=== PATIENT | female | born 1975 | race Caucasian/White ===

== ENCOUNTER 2020-09-28 12:29 | Observation (INO) | payer OTHER ==
[2020-09-28 13:08] LABS: Absolute Lymphocytes (CBC) 2.2 K/uL (0.7-4.9); Basophils % 1.1 % (0-1.3); Hematocrit 31.8 % (36.0-45.0); Lymphocytes % 26.1 % (15.3-44.8); MPV 8.7 fL (7.6-11.3); RBC Red Blood Cell Count 5.26 M/uL (3.86-4.86)
[2020-09-28 13:19] LABS: Protime INR 1.03
[2020-09-28 13:26] LABS: ALT/SGPT 28 U/L (12-78); AST/SGOT 23 U/L (15-37); Alkaline Phosphatase 87 U/L (45-117); BUN Blood Urea Nitrogen 10 mg/dL (7-18); Bicarbonate 26 mmol/L (21-32); Bilirubin Direct 0.1 mg/dL (0-0.2); Bilirubin Total 0.4 mg/dL (0.2-1.0); Glucose Level 88 mg/dL (74-106); Potassium 4.3 mmol/L (3.5-5.1); Protein, Total 7.9 g/dL (6.4-8.2); Sodium Level 137 mmol/L (136-145)
[2020-09-28 13:27] LABS: Magnesium 2.3 mg/dL (1.8-2.4); NT PRO-BNP 110 pg/mL (<125); Troponin (Emerg Dept Use Only) < 0.02 ng/mL (0.0-0.045)
--- NOTE | 2020-09-28 13:56 | RAD REPORT ---
EXAM DESCRIPTION: RAD - Chest Single View - 09/28/2020 1:44 pm CLINICAL HISTORY: CHEST PAIN COMPARISON: No comparisons FINDINGS: No evidence of edema or pneumonia. The heart size is within normal limits.No acute osseous abnormality. No significant pleural effusions or pneumothorax. IMPRESSION: No acute cardiopulmonary disease.
[2020-09-28 14:53] LABS: Anisocytosis 2+; Blood Morphology Comment NOTED (NOT SEEN); Platelet Estimate ADEQ; Poikilocytosis 2+; White Blood Cell Scan OK (OK)
[2020-09-28 15:38] LABS: Urine Blood Negative (Negative); Urine Glucose Negative (Negative); Urine Protein 1+ (Negative); Urine Specific Gravity >=1.030 (1.005-1.030)
--- NOTE | 2020-09-28 17:18 | EDPHYS ---
Physician Documentation [facility] Name: Allyson Soler Age: 45 yrs Sex: Female : 1975 Arrival Date: 09/28/2020 Time: 12:30 Bed 8 Private MD: ED Physician Jamil Perez HPI: 09/28 17:10 This 45 yrs old Female presents to ER via Ambulatory with complaints of Chest rivas Pain. 17:10 The patient or guardian reports chest pain that is located primarily in the substernal rivas area, anterior chest wall, bilaterally. Onset: 3 day(s) ago. The pain does not radiate. Associated signs and symptoms: Pertinent positives: dizziness, shortness of breath. The chest pain is described as causing indigestion, a pressure, squeezing. Duration: The patient or guardian reports multiple episodes, with no pattern. Modifying factors: The symptoms are alleviated by nothing. the symptoms are aggravated by nothing. Severity of pain: At its worst the pain was mild moderate in the emergency department the pain has improved moderately. The patient has experienced similar episodes in the past, several times. 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 - Social history:: Smoking status: Patient reports the use of cigarette tobacco products, smokes one pack cigarettes per day. - Family history:: not pertinent. ROS: 17:10 Constitutional: Negative for fever, chills, and weight loss, Eyes: Negative for injury, rivas pain, redness, and discharge, ENT: Negative for injury, pain, and discharge, Neck: Negative for injury, pain, and swelling, Abdomen/GI: Negative for abdominal pain, nausea, vomiting, diarrhea, and constipation, Back: Negative for injury and pain, : Negative for injury, bleeding, discharge, and swelling, MS/Extremity: Negative for injury and deformity, Skin: Negative for injury, rash, and discoloration, Neuro: Negative for headache, weakness, numbness, tingling, and seizure, Psych: Negative for depression, anxiety, suicide ideation, homicidal ideation, and hallucinations, Allergy/Immunology: Negative for hives, rash, and allergies, Endocrine: Negative for neck swelling, polydipsia, polyuria, polyphagia, and marked weight changes, Hematologic/Lymphatic: Negative for swollen nodes, abnormal bleeding, and unusual bruising. 17:10 Cardiovascular: Positive for chest pain. 17:10 Respiratory: Positive for shortness of breath. Exam: 17:10 Constitutional: This is a well developed, well nourished patient who is awake, alert, rivas and in no acute distress. Head/Face: Normocephalic, atraumatic. Eyes: Pupils equal round and reactive to light, extra-ocular motions intact. Lids and lashes normal. Conjunctiva and sclera are non-icteric and not injected. Cornea within normal limits. Periorbital areas with no swelling, redness, or edema. ENT: Nares patent. No nasal discharge, no septal abnormalities noted. Tympanic membranes are normal and external auditory canals are clear. Oropharynx with no redness, swelling, or masses, exudates, or evidence of obstruction, uvula midline. Mucous membranes moist. Neck: Trachea midline, no thyromegaly or masses palpated, and no cervical lymphadenopathy. Supple, full range of motion without nuchal rigidity, or vertebral point tenderness. No Meningismus. Chest/axilla: Normal chest wall appearance and motion. Nontender with no deformity. No lesions are appreciated. Cardiovascular: Regular rate and rhythm with a normal S1 and S2. No gallops, murmurs, or rubs. Normal PMI, no JVD. No pulse deficits. Respiratory: Lungs have equal breath sounds bilaterally, clear to auscultation and percussion. No rales, rhonchi or wheezes noted. No increased work of breathing, no retractions or nasal flaring. Abdomen/GI: Soft, non-tender, with normal bowel sounds. No distension or tympany. No guarding or rebound. No evidence of tenderness throughout. Back: No spinal tenderness. No costovertebral tenderness. Full range of motion. Female : Normal external genitalia. Skin: Warm, dry with normal turgor. Normal color with no rashes, no lesions, and no evidence of cellulitis. MS/ Extremity: Pulses equal, no cyanosis. Neurovascular intact. Full, normal range of motion. Neuro: Awake and alert, GCS 15, oriented to person, place, time, and situation. Cranial nerves II-XII grossly intact. Motor strength 5/5 in all extremities. Sensory grossly intact. Cerebellar exam normal. Normal gait. Psych: Awake, alert, with orientation to person, place and time. Behavior, mood, and affect are within normal limits. 17:10 Musculoskeletal/extremity: DVT Exam: No signs of deep vein thrombosis. no pain, no swelling, no tenderness, negative Homans' sign noted on exam, no appreciated bluish discoloration, no erythema, no increased warmth. 17:15 ECG was reviewed by the Attending Physician. [facility] Vital Signs: 12:38 BP 184 / 100 LA; jl7 12:38 BP 211 / 103 RA; Pulse 65; Resp 15; Temp 97.7; Pulse Ox 100% on R/A; Weight 65.77 kg; jl7 Height 5 ft. 4 in. (162.56 cm); Pain 5/10; 14:24 BP 208 / 99; Pulse 55; Resp 17; Temp 97.9(O); Pulse Ox 100% on R/A; mh5 16:19 BP 200 / 85; Pulse 75; Resp 16; Pulse Ox 98% on R/A; iw 19:36 BP 199 / 99; Pulse 55; Resp 16; Pulse Ox 97% on R/A; iw 12:38 Body Mass Index 24.89 (65.77 kg, 162.56 cm) jl7 MDM: 15:02 Patient medically screened. rivas 17:13 Differential diagnosis: abnormal EKG, acute myocardial infarction, acute pericarditis, rivas chest wall pain, cholecystitis, Cholelithiasis costochondritis, hiatal hernia, pancreatitis, peptic ulcer disease, pericarditis, pleurisy, stable angina, unstable angina. HEART Score: History: Slightly Suspicious (0), ECG: Normal (0), Age: > 45 and < 65 years (1), Risk Factors: > or = 3 Risk factors for atherosclerotic disease (2), [Hypercholesterolemia] [Hypertension] [Active Smoker] [+ Family HX]. The patient was given aspirin in the Emergency Department. The patient's deep vein thrombosis risk score was calculated as follows: Total Score: 0. This patient was found to be at low risk for a deep vein thrombosis by using the Well's assessment criteria. The patient's pulmonary embolism risk score was calculated as follows: Total Score: 0-2 points. This patient was found to be at low risk for a pulmonary embolism by using the Well's assessment criteria. SANDHYA Risk Score: 1 - Three or more CAD risk factors, TOTAL SCORE = 1. Data reviewed: vital signs, nurses notes, lab test result(s), EKG, radiologic studies, plain films. Data interpreted: library monitor: rate is 75 beats/min, rhythm is regular, Pulse oximetry: on room air is 98 %. Test interpretation: by ED physician or midlevel provider: ECG, plain radiologic studies. Counseling: I had a detailed discussion with the patient and/or guardian regarding: the historical points, exam findings, and any diagnostic results supporting the discharge/admit diagnosis, the presence of at least one elevated blood pressure reading (>120/80) during this emergency department visit, lab results, radiology results, the need for further work-up and treatment in the hospital. 09/28 12:43 Order name: Basic Metabolic Panel 09/28 12:43 Order name: CBC with Diff; Complete Time: 15:03 09/28 12:43 Order name: LFT's 09/28 12:43 Order name: Magnesium; Complete Time: 15:03 09/28 12:43 Order name: NT PRO-BNP; Complete Time: 15:03 09/28 12:43 Order name: PT-INR; Complete Time: 15:03 09/28 12:43 Order name: Troponin (emerg Dept Use Only); Complete Time: 15:03 09/28 12:44 Order name: Basic Metabolic Panel; Complete Time: 15:03 EDMS 09/28 12:44 Order name: Liver (Hepatic) Function; Complete Time: 15:03 EDNV 09/28 14:51 Order name: CBC Smear Scan; Complete Time: 15:03 EDNV 09/28 15:03 Order name: Lipase; Complete Time: 06:16 [facility] 09/28 15:37 Order name: Urine Dipstick-Ancillary; Complete Time: 16:55 EDMS 09/28 15:43 Order name: Urine --Ancillary (enter results) eb 09/28 15:44 Order name: Urine --Ancillary; Complete Time: 06:16 EDMS 09/28 12:43 Order name: XRAY Chest (1 view); Complete Time: 15:03 iw 09/28 17:53 Order name: COVID-19 : Document "Date of Symptom Onset" if Symptomatic. eb 09/28 17:54 Order name: CORONAVIRUS EDMS 09/28 20:24 Order name: SARS-COV-2 RT PCR; Complete Time: 06:16 EDMS 09/29 06:22 Order name: CBC with Automated Diff EDMS 09/29 06:47 Order name: Comprehensive Metabolic Panel EDMS 09/29 06:47 Order name: Troponin I EDMS 09/29 06:47 Order name: Lipid Profile EDMS 09/29 06:47 Order name: T4 Free EDMS 09/29 06:47 Order name: Magnesium EDMS 09/29 06:47 Order name: Thyroid Stimulating Hormone EDMS 09/29 06:47 Order name: Transferrin Sat/Iron Binding EDMS 09/29 06:47 Order name: Ferritin EDMS 09/29 13:01 Order name: Troponin I EDMS 09/28 12:43 Order name: EKG; Complete Time: 12:44 iw 09/28 12:43 Order name: Cardiac monitoring; Complete Time: 14:37 iw 09/28 12:43 Order name: EKG - Nurse/Tech; Complete Time: 14:28 iw 09/28 12:43 Order name: IV Saline Lock; Complete Time: 14:37 iw 09/28 12:43 Order name: Labs collected and sent; Complete Time: 14:28 iw 09/28 12:43 Order name: O2 Per Protocol; Complete Time: 14:28 iw 09/28 12:43 Order name: O2 Sat Monitoring; Complete Time: 14:28 iw 09/28 15:03 Order name: Urine Dipstick-Ancillary (obtain specimen); Complete Time: 15:37 rivas EC:15 Rate is 59 beats/min. Rhythm is regular. QRS [place] is Normal. TN interval is normal. QRS rivas interval is normal. QT interval is normal. No Q waves. T waves are Normal. No ST changes noted. Clinical impression: Sinus bradycardia and No evidence of ischemia. Interpreted by me. Reviewed by me. Administered Medications: 17:51 Drug: Aspirin Chewable Tablet 324 mg Route: PO; iw 19:38 Follow up: Response: No adverse reaction iw 17:51 Drug: Pepcid (famotidine) 20 mg Route: IVP; Site: right forearm; iw 19:38 Follow up: Response: No adverse reaction iw 17:51 Drug: Norvasc (amlodipine) 5 mg Route: PO; iw 19:38 Follow up: Response: No adverse reaction; Blood pressure is lowered iw 17:51 Drug: Enalaprilat 1.25 mg Route: IV; Rate: per protocol; Site: right forearm; iw 19:37 Follow up: IV Status: Completed infusion iw 17:52 Not Given (Patient Refused): morphine 2 mg IVP once; (PAIN>8) RASS on ADMN: Combtv4, iw Very Agttd3, Agttd2, Rstlss1, AlertClm0, Drwsy-1, LtSdtn-2, ModSdtn-3, DpSdtn-4, UnArsble-5 x2 17:52 Not Given (Patient Refused): Zofran (Ondansetron) 4 mg IVP once; over 2 minutes iw 17:54 Not Given (Physician Discretion): Vasotec (enalapril) 2.5 mg PO once iw 18:30 Drug: Lovenox (enoxaparin) 1 mg/kg Route: Sub-Q; Site: right lower abdomen; iw 19:37 Follow up: Response: No adverse reaction iw 19:43 Drug: Lisinopril 10 mg Route: PO; iw 20:09 Drug: NS 0.9% 1000 ml Route: IV; Rate: 125 ml/hr; Site: right forearm; zb Disposition Summary: 09/28/20 17:18 Hospitalization Ordered Hospitalization Status: Observation rivas Provider: Juanjose Diaz rivas Condition: Stable rivas Problem: new rivas Symptoms: have improved rivas Bed/Room Type: Standard rivas Location: [facility] ER HOLD(09/28/20 23:11) cg Room Assignment: ERHOLD-(09/28/20 23:11) cg Diagnosis - Chest pain, unspecified rivas - Angina pectoris, unspecified rivas - Anemia, unspecified rivas - Tobacco abuse counseling rivas - Tobacco use rivas - Essential (primary) hypertension rivas Forms: - Medication Reconciliation Form rivas - SBAR form rivas Signatures: Dispatcher [employer] Jamil Becerra MD MD cha Williams, Irene RN RN iw Sylvester Lea PA PA jr8 Garcia, Cindy, RN RN cg Gifty Justice RN RN jl7 Sarah White RN RN zb Corrections: (The following items were deleted from the chart) : Telemetry/MedSurg (observation) [facility]
--- NOTE | 2020-09-28 17:18 | ER ---
Nurse's Notes [facility] Name: Allyson Soler Age: 45 yrs Sex: Female : 1975 Arrival Date: 09/28/2020 Time: 12:30 Bed 8 Private MD: Diagnosis: Chest pain, unspecified;Angina pectoris, unspecified;Anemia, unspecified;Tobacco abuse counseling;Tobacco use;Essential (primary) hypertension Presentation: 09/28 12:38 Chief complaint: Patient states: Intermittent, non-radiating, midsternal CP x 4 days. jl7 Coronavirus screen: Client denies travel out of the [place] in the last 14 days. At this time, the client does not indicate any symptoms associated with coronavirus-19. Ebola Screen: No symptoms or risks identified at this time. Initial Sepsis Screen: Does the patient meet any 2 criteria? No. Patient's initial sepsis screen is negative. Does the patient have a suspected source of infection? No. Patient's initial sepsis screen is negative. Risk Assessment: Do you want to hurt yourself or someone else? Patient reports no desire to harm self or others. Onset of symptoms was September 24, 2020. 12:38 Method Of Arrival: Ambulatory jl7 12:38 Acuity: HUMBERTO 2 jl7 Triage Assessment: 12:40 General: Appears in no apparent distress. uncomfortable, Behavior is calm, cooperative, jl7 appropriate for age. Pain: Complains of pain in chest Pain does not radiate. Pain currently is 5 out of 10 on a pain scale. Quality of pain is described as pressure, Pain began x 4 days Is continuous. Cardiovascular: Patient's skin is warm and dry. 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 - Social history:: Smoking status: Patient reports the use of cigarette tobacco products, smokes one pack cigarettes per day. - Family history:: not pertinent. Screenin:29 Abuse screen: Denies threats or abuse. Denies injuries from another. Nutritional iw screening: No deficits noted. Tuberculosis screening: No symptoms or risk factors identified. Fall Risk None identified. Assessment: 14:29 General: Appears in no apparent distress. Behavior is calm, cooperative. Pain: iw Complains of pain in chest. Pain: Pain Is intermittent. Neuro: Level of Consciousness is awake, alert, obeys commands, Oriented to person, place, time, situation, Moves all extremities. Full function. 18:00 Reassessment: Patient appears in no apparent distress at this time. Patient and/or iw family updated on plan of care and expected duration. Pain level reassessed. Patient is alert, oriented x 3, equal unlabored respirations, skin warm/dry/pink. Vital Signs: 12:38 BP 184 / 100 LA; jl7 12:38 BP 211 / 103 RA; Pulse 65; Resp 15; Temp 97.7; Pulse Ox 100% on R/A; Weight 65.77 kg; 7 Height 5 ft. 4 in. (162.56 cm); Pain 5/10; 14:24 BP 208 / 99; Pulse 55; Resp 17; Temp 97.9(O); Pulse Ox 100% on R/A; [facility] 16:19 BP 200 / 85; Pulse 75; Resp 16; Pulse Ox 98% on R/A; iw 19:36 BP 199 / 99; Pulse 55; Resp 16; Pulse Ox 97% on R/A; iw 12:38 Body Mass Index 24.89 (65.77 kg, 162.56 cm) [facility] ED Course: 12:30 Patient arrived in ED. as 12:40 Triage completed. [facility] 12:40 Arm band placed on right wrist. [facility] 13:44 XRAY Chest (1 view) In Process Unspecified. EDMS 14:24 Patient has correct armband on for positive identification. Bed in low position. Call [facility] light in reach. Side rails up X 1. movement assembler on. Pulse ox on. NIBP on. 14:25 Initial lab(s) drawn, by pa, sent to lab. EKG done, by ED staff, reviewed by Jamil Perez MD. Inserted saline lock: 22 gauge in right forearm, using aseptic technique. Blood collected. 14:28 Rosenda Galindo, RN is Primary Nurse. 14:37 Basic Metabolic Panel Sent. [facility] 14:37 LFT's Sent. [facility] 15:02 Jamil Perez MD is Attending Physician. rivas 17:16 Juanjose Diaz DO is Hospitalizing Provider. [facility] 19:43 COVID-19 : Document "Date of Symptom Onset" if Symptomatic. Sent. iw Administered Medications: 17:51 Drug: Aspirin Chewable Tablet 324 mg Route: PO; iw 19:38 Follow up: Response: No adverse reaction iw 17:51 Drug: Pepcid (famotidine) 20 mg Route: IVP; Site: right forearm; iw 19:38 Follow up: Response: No adverse reaction iw 17:51 Drug: Norvasc (amlodipine) 5 mg Route: PO; iw 19:38 Follow up: Response: No adverse reaction; Blood pressure is lowered iw 17:51 Drug: Enalaprilat 1.25 mg Route: IV; Rate: per protocol; Site: right forearm; iw 19:37 Follow up: IV Status: Completed infusion iw 17:52 Not Given (Patient Refused): morphine 2 mg IVP once; (PAIN>8) RASS on ADMN: Combtv4, iw Very Agttd3, Agttd2, Rstlss1, AlertClm0, Drwsy-1, LtSdtn-2, ModSdtn-3, DpSdtn-4, UnArsble-5 x2 17:52 Not Given (Patient Refused): Zofran (Ondansetron) 4 mg IVP once; over 2 minutes iw 17:54 Not Given (Physician Discretion): Vasotec (enalapril) 2.5 mg PO once iw 18:30 Drug: Lovenox (enoxaparin) 1 mg/kg Route: Sub-Q; Site: right lower abdomen; iw 19:37 Follow up: Response: No adverse reaction iw 19:43 Drug: Lisinopril 10 mg Route: PO; iw 20:09 Drug: NS 0.9% 1000 ml Route: IV; Rate: 125 ml/hr; Site: right forearm; zb Outcome: 17:18 Decision to Hospitalize by Provider. [facility] 09/29 14:34 Patient left the ED. jd3 Signatures: Dispatcher [employer] EDMS Jamil Perez MD MD cha Martinez, Amelia as Williams, Irene, RN RN Louisa Avalos [facility] Gifty Justice, RN RN jl7 Santhosh Christy, RN RN jd3 Sarah White RN RN zb
[2020-09-28] MEDS ORDERED: ENALAPRILAT 1.25 MG/ML VIAL IV ONE (17:58)
[2020-09-28] MEDS ORDERED: FAMOTIDINE 20 MG/2 ML VIAL IV ONE (17:58)
[2020-09-28] MEDS ORDERED: ASPIRIN 81 MG CHEWABLE TABLET ONE (17:58)
[2020-09-28] MEDS ORDERED: AMLODIPINE 5 MG TAB ONE (17:58)
[2020-09-28] MEDS ORDERED: ENOXAPARIN 60 MG/0.6 ML SQ ONE (17:59)
--- NOTE | 2020-09-28 18:07 | P.HP ---
Certification for Inpatient Patient admitted to: Observation With expected LOS: <2 Midnights Patient will require the following post-hospital care: None Practitioner: I am a practitioner with admitting privileges, knowledge of patient current condition, hospital course, and medical plan of care. Services: Services provided to patient in accordance with Admission requirements found in Title 42 Section 412.3 of the Code of Federal Regulations <Calvin Abdi - Last Filed: 09/28/20 18:05> Patient admitted to: Observation <Juanjose Diaz - Last Filed: 09/29/20 07:21> Patient History Date of Service: 09/28/20 Primary Care Provider: None Reason for admission: Chest pain History of Present Illness: 45-year-old female with no significant past medical history presents emergency department for chest pain. Patient reports episodic chest pain over the course of the last 4 days described as pressure-like, nonradiating with associated hot flashes. Patient hypertensive with systolic in 200s in the emergency department labs were significant for microcytic anemia hemoglobin 9.5 hematocrit 31.8 MCV 60.4 initial troponin negative, EKG no acute changes, chest x-ray negative. ED provider wishes to admit for hypertension, chest pain, anemia. 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 moist/pink, EOMI, Sclerae nonicteric Neck: Supple, 2+ carotid pulse no bruit, No LAD, Without JVD or thyroid abnormality Respiratory: Clear to auscultation bilaterally, Normal air movement Cardiovascular: Regular rate/rhythm, Normal S1 S2 Gastrointestinal: Normal bowel sounds, No tenderness Musculoskeletal: No tenderness Integumentary: No rashes Neurological: Normal gait, Normal speech, Normal strength at 5/5 x4 extr, Normal tone, Normal affect Lymphatics: No axilla or inguinal lymphadenopathy - Studies Laboratory Data (last 24 hrs) 09/28/20 11:52: PT 11.9, INR 1.03 09/28/20 11:52: WBC 8.30, Hgb 9.5 L, Hct 31.8 L, Plt Count 279 09/28/20 11:52: Sodium 137, Potassium 4.3, BUN 10, Creatinine 0.88, Glucose 88, Magnesium 2.3, Total Bilirubin 0.4, AST 23, ALT 28, Alkaline Phosphatase 87 <Calvin Abdi - Last Filed: 09/28/20 18:05> - Studies Laboratory Data (last 24 hrs) 09/28/20 11:52: PT 11.9, INR 1.03 09/28/20 11:52: WBC 8.30, Hgb 9.5 L, Hct 31.8 L, Plt Count 279 09/28/20 11:52: Sodium 137, Potassium 4.3, BUN 10, Creatinine 0.88, Glucose 88, Magnesium 2.3, Total Bilirubin 0.4, AST 23, ALT 28, Alkaline Phosphatase 87 <Juanjose Diaz - Last Filed: 09/29/20 07:21> Assessment and Plan - Plan Assessment: Chest pain rule out ACS Hypertension Tobacco abuse Plan: Chest pain rule out ACS: Trend troponins, monitor on telemetry, cardiology consult in place. Continue aspirin, beta-melchor, statin therapy. Patient without previous cardiac work-up. Anticipate patient will be discharged the morning to follow-up with cardiology on outpatient basis. Hypertension: Initiate lisinopril, beta-melchor therapy with holding parameters for blood pressure/heart rate. Tobacco abuse: Discussed need for tobacco cessation, patient declined NicoDerm patch at this time. DVT PPX: Lovenox Code status: Full Discharge Plan: Home Plan to discharge in: 24 Hours - Advance Directives Does patient have a Living Will: No Does patient have a Durable POA for Healthcare: No - Code Status/Comfort Care Code Status Assessed: Yes (Full code) Time Spent Managing Pts Care (In Minutes): 55 <Calvin Abdi - Last Filed: 09/28/20 18:05>
[2020-09-28] MEDS ORDERED: ONDANSETRON 4 MG/2 ML VIAL IV PRN (19:41)
[2020-09-28] MEDS: METOPROLOL TAR 25 MG TAB PO SCH (19:41)
[2020-09-28] MEDS ORDERED: ACETAMINOPHEN 500 MG TAB PO PRN (19:41)
[2020-09-28] MEDS ORDERED: HYDRALAZINE HCL 20 MG/ML VIAL IV PRN (19:41)
[2020-09-28] MEDS ORDERED: MORPHINE 2 MG/ML SYR IV PRN (19:41)
[2020-09-28] MEDS ORDERED: lisinopriL 10 MG TAB ONE (20:02)
[2020-09-28] MEDS ORDERED: ATORVASTATIN 20 MG TAB ONE (20:11)
[2020-09-28] MEDS ORDERED: NA CHLORIDE 0.9% 1,000 ML ONE (20:28)
[2020-09-28] MEDS ORDERED: ATORVASTATIN 20 MG TAB PO SCH (21:00)
[2020-09-28 21:29] VITALS: BMI 24.8
[2020-09-29] MEDS: METOPROLOL TAR 25 MG TAB PO SCH (05:30)
[2020-09-29 06:20] LABS: Absolute Lymphocytes (CBC) 2.3 K/uL (0.7-4.9); Basophils % 1.6 % (0-1.3); Lymphocytes % 25.4 % (15.3-44.8); MPV 9.1 fL (7.6-11.3); RBC Red Blood Cell Count 4.99 M/uL (3.86-4.86)
[2020-09-29 06:47] LABS: ALT/SGPT 26 U/L (12-78); AST/SGOT 17 U/L (15-37); Albumin 3.4 g/dL (3.4-5.0); Alkaline Phosphatase 82 U/L (45-117); BUN Blood Urea Nitrogen 11 mg/dL (7-18); Bicarbonate 26 mmol/L (21-32); Bilirubin Total 0.2 mg/dL (0.2-1.0); Ferritin 5.1 ng/mL (8-388); Glucose Level 89 mg/dL (74-106); HDL Cholesterol 38 mg/dL (40-60); LDL Cholesterol, Calculated 135 (<130); Magnesium 2.2 mg/dL (1.8-2.4); Potassium 4.1 mmol/L (3.5-5.1); Protein, Total 7.1 g/dL (6.4-8.2); Sodium Level 137 mmol/L (136-145); Transferrin 321 mg/dL (200-360); Troponin I < 0.02 ng/mL (0.0-0.045)
[2020-09-29] MEDS ORDERED: PNEUMOCOCCAL VACCINE 0.5 ML IMVAC ONE (08:00)
[2020-09-29] MEDS ORDERED: ASPIRIN EC 81 MG TAB PO ONE (08:30)
[2020-09-29] MEDS ORDERED: ENOXAPARIN 40 MG/0.4 ML SQ ONE (08:31)
[2020-09-29] MEDS ORDERED: lisinopriL 20 MG TAB ONE (08:31)
[2020-09-29 08:39] VITALS: BP 178/95
[2020-09-29] MEDS ORDERED: HYDRALAZINE HCL 25 MG TABLET PO SCH (09:00)
[2020-09-29] MEDS ORDERED: lisinopriL 20 MG TAB PO SCH (09:00)
[2020-09-29] MEDS ORDERED: ASPIRIN EC 81 MG TAB PO SCH (09:00)
[2020-09-29] MEDS ORDERED: ENOXAPARIN 40 MG/0.4 ML SQ SCH (09:00)
[2020-09-29 09:28] VITALS: TEMP 97.6
[2020-09-29] MEDS ORDERED: SOD FERRIC GLUC COMPLX/SUCROSE 250 MG in NA CHLORIDE 0.9% 250 ML IV SCH (10:00)
[2020-09-29] MEDS ORDERED: HYDRALAZINE HCL 25 MG TABLET ONE (10:51)
--- NOTE | 2020-09-29 13:48 | CON ---
Date of Consultation: 09/29/2020 Reason For Consultation: Hypertension and chest pain. History Of Present Illness: The patient is a 45-year-old white woman. She came in with blood pressu re of 190/160, substernal chest pain, anemia, negative troponin and negative BNP, severe dyslipidemia . No nausea, vomiting, diaphoresis, PND, orthopnea, pedal edema, palpitations, or syncope. Allergies: NONE. Review of Systems: Negative. Social History: Positive for tobacco. Family History: Positive for heart disease. Past Medical History: Includes hypertension and dyslipidemia. Medications: Medications at home were none. Physical Examination: Vital Signs: Other than the blood pressure, her vital signs were stable, afebrile. HEENT: Negative. Neck: Supple with no bruit. Chest: Clear. Cardiac: Revealed a regular rhythm and rate. No murmurs, gallops, or rubs. Abdomen: Benign. Extremities: Revealed no clubbing, cyanosis, or edema. Diagnostic Data: As stated earlier. Impression And Plan: Chest pain secondary to severe hypertension. I think the patient should be on beta-blockers, hydralazine, Hyzaar, statin, aspirin, and she can go home today. I will see her in the office in the near future. NICHOLAS/DC Voice ID: [id number] Report ID: [id number]
[2020-09-29 15:08] VITALS: O2SAT 97
--- NOTE | 2020-10-06 06:44 | P.DS ---
Discharge Date: 09/29/20 Primary Care Provider: None Disposition: ROUTINE DISCHARGE Discharge Condition: GOOD Reason for Admission: Chest pain Consultations: Commission Clerk Brief History of Present Illness: 45-year-old female with no significant past medical history presents emergency department for chest pain. Patient reports episodic chest pain over the course of the last 4 days described as pressure-like, nonradiating with associated hot flashes. Patient hypertensive with systolic in 200s in the emergency department labs were significant for microcytic anemia hemoglobin 9.5 hematocrit 31.8 MCV 60.4 initial troponin negative, EKG no acute changes, chest x-ray negative. ED provider wishes to admit for hypertension, chest pain, anemia. Hospital Course: Patient is clinically doing well no new complaints. Patient clinical symptoms are improving. Patient will follow up with cardiology 1-2 weeks Vital Signs/Physical Exam: Temp Pulse Resp BP Pulse Ox 97.6 F 56 15 178/95 H 99 09/29/20 08:00 09/29/20 08:34 09/29/20 08:00 09/29/20 08:34 09/29/20 08:00 General: Alert, In no apparent distress, Oriented x3 Laboratory Data at Discharge: WBC 9.00 K/uL (4.3-10.9) 09/29/20 05:49 Hgb 9.2 g/dL (12.0-15.0) L 09/29/20 05:49 Hct 30.0 % (36.0-45.0) L 09/29/20 05:49 Plt Count 271 K/uL (152-406) 09/29/20 05:49 PT 11.9 SECONDS (9.5-12.5) 09/28/20 11:52 INR 1.03 09/28/20 11:52 Sodium 137 mmol/L (136-145) 09/29/20 05:49 Potassium 4.1 mmol/L (3.5-5.1) 09/29/20 05:49 BUN 11 mg/dL (7-18) 09/29/20 05:49 Creatinine 0.62 mg/dL (0.55-1.3) 09/29/20 05:49 Glucose 89 mg/dL (74-106) 09/29/20 05:49 Magnesium 2.2 mg/dL (1.8-2.4) 09/29/20 05:49 Total Bilirubin 0.2 mg/dL (0.2-1.0) 09/29/20 05:49 AST 17 U/L (15-37) 09/29/20 05:49 ALT 26 U/L (12-78) 09/29/20 05:49 Alkaline Phosphatase 82 U/L (45-117) 09/29/20 05:49 Troponin I < 0.02 ng/mL (0.0-0.045) 09/29/20 12:11 Triglycerides 193 mg/dL (<150) H 09/29/20 05:49 Cholesterol 212 mg/dL (<200) H 09/29/20 05:49 HDL Cholesterol 38 mg/dL (40-60) L 09/29/20 05:49 Cholesterol/HDL Ratio 5.58 09/29/20 05:49 Lipase 174 U/L (73-393) 09/28/20 18:55 Home Medications: Atorvastatin Calcium [Lipitor*] 40 mg PO BEDTIME #30 tab 09/29/20 Hydralazine [Apresoline*] 25 mg PO TID #90 tab 09/29/20 Losartan/Hydrochlorothiazide [Hyzaar 50-12.5 Tablet] 1 each PO DAILY #30 tablet 09/29/20 Metoprolol Tartrate [Lopressor*] 12.5 mg PO BID 6AM 6PM #60 tab 09/29/20 New Medications: Hydralazine [Apresoline*] 25 mg PO TID #90 tab Losartan/Hydrochlorothiazide [Hyzaar 50-12.5 Tablet] 1 each PO DAILY #30 tablet Atorvastatin Calcium [Lipitor*] 40 mg PO BEDTIME #30 tab Metoprolol Tartrate [Lopressor*] 12.5 mg PO BID 6AM 6PM #60 tab Physician Discharge Instructions: OK TO DC IV AND DC HOME FOLLOW-UP WITH PRIMARY CARE PROVIDER IN 1-2 WEEKS FOLLOW-UP WITH CARDIOLOGY IN 1-2 WEEKS RETURN TO THE ER IF symptoms worsen CALL or TEXT DR. INFANTE AT [phone] IF ANY QUESTIONS REGARDING HOSPITAL STAY. PLEASE CALL THE FLOOR AT [phone] IF ANY MEDICATION OR NURSING QUESTIONS. Diet: AHA Activity: Fall precautions Followup: NONE,NONE [Primary Care Provider] - Time spent managing pt's care (in minutes): 35
== END 2020-09-29 14:38 | disposition home or self-care (01) ==
LOC: ER 12:29 → ERHOLD 17:59
PROVIDERS: ADMIT Family Medicine; ATTEND Hospitalist
DX: I10 Essential (primary) hypertension (principal); R07.9 Chest pain, unspecified; D64.9 Anemia, unspecified; E78.5 Hyperlipidemia, unspecified; F17.210 Nicotine dependence, cigarettes, uncomplicated; Z71.6 Tobacco abuse counseling; Z85.828 Personal history of other malignant neoplasm of skin; Z20.822 Contact with and (suspected) exposure to COVID-19; Z82.49 Family history of ischemic heart disease and other diseases of the circulatory system
CPT/HCPCS: 96365; 93005; 85025 ×2; 80048; 36415; 83735 ×2; 81025; 85610; 80061; 80076; 84443; 81003; 84484 ×3; 84439; 82728; 83690; 83540; 80053; 83880; 84466; 71045; 96375; 96372; 99284; 96366; U0003; J1650 ×2; J2916; J7050; J7030; G0378 ×3

== ENCOUNTER 2021-05-25 10:14 | Emergency (ER) | payer OTHER ==
--- NOTE | 2021-05-25 11:04 | RAD REPORT ---
EXAM DESCRIPTION: RAD - Chest Single View - 05/25/2021 10:58 am CLINICAL HISTORY: syncope Chest pain. COMPARISON: Chest Single View dated 09/28/2020 FINDINGS: Portable technique limits examination quality. The lungs are grossly clear. The heart is normal in size. No displaced fractures. IMPRESSION: No acute intrathoracic process suspected.
[2021-05-25 11:47] LABS: Absolute Lymphocytes (CBC) 2.8 K/uL (0.7-4.9); Hematocrit 47.8 % (36.0-45.0); Lymphocytes % 26.7 % (15.3-44.8); RBC Red Blood Cell Count 5.99 M/uL (3.86-4.86)
--- NOTE | 2021-05-25 12:07 | RAD REPORT ---
EXAM DESCRIPTION: CT - Head Brain Wo Cont - 05/25/2021 11:40 am CLINICAL HISTORY: headache, dizziness COMPARISON: Head angio dated 05/25/2021 TECHNIQUE: All CT scans are performed using dose optimization technique as appropriate and may inclu de automated exposure control or mA/KV adjustment according to patient size. FINDINGS: No intracranial hemorrhage, hydrocephalus or extra-axial fluid collection.No areas of brai n edema or evidence of midline shift. The paranasal sinuses and mastoids are clear. The calvarium is intact. IMPRESSION: No acute intracranial abnormality.
--- NOTE | 2021-05-25 12:09 | RAD REPORT ---
EXAM DESCRIPTION: CT - Head angio - 05/25/2021 11:41 am CLINICAL HISTORY: HEADACHE COMPARISON: No comparisons TECHNIQUE: CT angiography of the head was performed with MIPs. All CT scans are performed using dose optimization technique as appropriate and may include automated exposure control or mA/KV adjustment according to patient size. FINDINGS: No evidence of aneurysm is detected. No flow-limiting stenosis or vascular malformation id entified. Antegrade flow is seen in the vertebral arteries. The vertebral arteries are codominant. The visualized dural venous sinuses are patent. IMPRESSION: No significant flow abnormality is detected.
--- NOTE | 2021-05-25 12:15 | RAD REPORT ---
EXAM DESCRIPTION: CT - Neck Angio - 05/25/2021 11:41 am CLINICAL HISTORY: dizziness Headache, drowsiness COMPARISON: No comparisons TECHNIQUE: CT angiography of the neck vessels was performed with MIPs. All CT scans are performed using dose optimization technique as appropriate and may include automated exposure control or mA/KV adjustment according to patient size. FINDINGS: A left aortic arch is identified with normal three vessel configuration of the great vesse ls. No significant flow abnormality is seen of the common carotid bilaterally. Mild narrowing is seen involving both carotid bulbs, both below 50% in luminal narrowing based on SYD CET criteria. Normal flow is seen within both vertebral arteries. IMPRESSION: Mild narrowing of both carotid bulbs is seen less than 50% based on NASCET criteria.
[2021-05-25 12:51] LABS: Magnesium 2.1 mg/dL (1.8-2.4); Potassium 3.9 mmol/L (3.5-5.1); Troponin High Sensitivity 6.7 pg/mL (<58.9)
[2021-05-25] MEDS ORDERED: HYDRALAZINE HCL 20 MG/ML VIAL ONE (13:02)
--- NOTE | 2021-05-25 13:58 | ER ---
Nurse's Notes [facility] Name: Allyson Soler Age: 45 yrs Sex: Female : 1975 Arrival Date: 05/25/2021 Time: 10:18 Bed 24 Private MD: Diagnosis: Hypertension Presentation: 05/25 11:00 Chief complaint: Patient states: Dizziness that began this morning at work, also ph reports headache, states, " My DR recently told me to double my BP meds when it is above 180. I didn't check it this morning because I was in a hurry so I just took the normal dose." BP in triage 193/97. Coronavirus screen: Vaccine status: Patient reports receiving the 2nd dose of the covid vaccine. Ebola Screen: No symptoms or risks identified at this time. Initial Sepsis Screen: Does the patient meet any 2 criteria? No. Patient's initial sepsis screen is negative. Does the patient have a suspected source of infection? No. Patient's initial sepsis screen is negative. Risk Assessment: Do you want to hurt yourself or someone else? Patient reports no desire to harm self or others. Onset of symptoms was May 25, 2021. 11:00 Method Of Arrival: Ambulatory ph 11:00 Acuity: HUMBERTO 2 ph Triage Assessment: 11:15 General: Appears in no apparent distress. comfortable, Behavior is calm, cooperative. ph Pain: Complains of pain in headahce. Neuro: Level of Consciousness is awake, alert, obeys commands, Oriented to person, place, time, situation, Reports dizziness, headache. Cardiovascular: Reports lightheadedness, Denies chest pain. Respiratory: Airway is patent Respiratory effort is even, unlabored. Musculoskeletal: Circulation, motion, and sensation intact. Range of motion: intact in all extremities. 12:12 Headache History: Denies prior headaches. Pain: Pain began gradually, Noted to be Also ab2 complains of nausea, inability to perform activities of daily living. Historical: - Allergies: 11:04 No Known Allergies; ph - PMHx: 11:04 Hypercholesterolemia; Hypertensive disorder; ph - Immunization history:: Adult Immunizations up to date. - Social history:: Smoking status: Patient reports the use of cigarette tobacco products, smokes one pack cigarettes per day. Screenin:12 Abuse screen: Denies threats or abuse. Denies injuries from another. Nutritional ab2 screening: No deficits noted. Tuberculosis screening: No symptoms or risk factors identified. Fall Risk None identified. Assessment: 12:10 General: Appears in no apparent distress. uncomfortable, Behavior is calm, cooperative, ab2 appropriate for age. Pain: Complains of pain in head Pain currently is 7 out of 10 on a pain scale. Neuro: Level of Consciousness is awake, alert, obeys commands, Oriented to person, place, time, situation, Appropriate for age Battery Hand are equal bilaterally Moves all extremities. Gait is steady, Speech is normal, Facial symmetry appears normal, Reports blurred vision dizziness, headache. Respiratory: Airway is patent Respiratory effort is even, unlabored, Respiratory pattern is regular, symmetrical, Breath sounds are clear bilaterally. GI: No deficits noted. No signs and/or symptoms were reported involving the gastrointestinal system. Abdomen is round non-distended. : No deficits noted. No signs and/or symptoms were reported regarding the genitourinary system. EENT: No deficits noted. No signs and/or symptoms were reported regarding the EENT system. Derm: Skin is intact, Skin is pink, warm \\T\\ dry. Musculoskeletal: No deficits noted. No signs and/or symptoms reported regarding the musculoskeletal system. 12:15 Cardiovascular: No deficits noted. Denies chest pain, shortness of breath, Heart tones ab2 S1 S2 Patient's skin is warm and dry. Rhythm is sinus bradycardia. Vital Signs: 11:00 BP 193 / 97; Pulse 46; Resp 18; Temp 98.1; Pulse Ox 100% on R/A; Weight 56.7 kg; Height ph 5 ft. 4 in. (162.56 cm); 12:13 BP 194 / 103; Pulse 42; Resp 16; Pulse Ox 100% on R/A; ab2 13:01 BP 198 / 86; Pulse 46; Resp 16; Pulse Ox 99% on R/A; ab2 14:26 BP 167 / 79; Pulse 47; Resp 17; Pulse Ox 98% on R/A; ab2 11:00 Body Mass Index 21.46 (56.70 kg, 162.56 cm) ph ED Course: 10:18 Patient arrived in ED. mr 10:42 Manny Joyner PA is PHCP. jmm 10:42 Sam Pina MD is Attending Physician. [facility] [place] [facility] 11:00 XRAY Chest (1 view) In Process Unspecified. EDMS 11:03 Triage completed. ph 11:03 Arm band placed on. ph 11:09 Rosenda Galindo, RN is Primary Nurse. iw 11:42 CT Head Brain wo Cont In Process Unspecified. EDMS 11:43 CT Head Angio In Process Unspecified. EDMS 11:43 CT Neck Angio In Process Unspecified. EDMS 12:10 Basic Metabolic Panel Sent. ab2 12:10 Magnesium Sent. ab2 12:10 NT PRO-BNP Sent. ab2 12:10 Troponin HS Sent. ab2 12:12 Patient has correct armband on for positive identification. Bed in low position. Call ab2 light in reach. Side rails up X2. Adult w/ patient. 12:12 No provider procedures requiring assistance completed. Inserted saline lock: 22 gauge ab2 in left wrist, using aseptic technique. 13:57 Jac Rodriguez MD is Referral Physician. [facility] 14:26 IV discontinued, intact, bleeding controlled, No redness/swelling at site. Pressure ab2 dressing applied. Administered Medications: 13:01 Drug: hydrALAZINE 10 mg Route: IVP; Site: left wrist; ab2 14:00 Follow up: Response: No adverse reaction; Pain is decreased iw Outcome: 13:57 Discharge ordered by MD. [facility] 14:26 Discharged to home ambulatory, with family. ab2 14:26 Condition: good 14:26 Discharge instructions given to patient, Instructed on discharge instructions, follow up and referral plans. Demonstrated understanding of instructions, follow-up care. 14:26 Patient left the ED. ab2 Signatures: Dispatcher [employer] EDPA Manny Joyner PA PA Afsaneh Norman mr Rosenda Galindo, RN RN iw Crystal Dooley RN RN ph Aamir Clay ab2 Corrections: (The following items were deleted from the chart) 12:15 12:10 Cardiovascular: Denies chest pain, shortness of breath, Heart tones S1 S2 present ab2 Patient's skin is warm and dry. Rhythm is sinus rhythm ab2
--- NOTE | 2021-05-25 13:58 | EDPHYS ---
Physician Documentation [facility] Name: Allyson Soler Age: 45 yrs Sex: Female : 1975 Arrival Date: 05/25/2021 Time: 10:18 Bed 24 Private MD: ED Physician Sam Pina HPI: 05/25 10:42 This 45 yrs old Female presents to ER via Unassigned with complaints of Dizziness, jmm Vision Problem, Headache. 10:42 The patient has experienced near-syncope. Onset: The symptoms/episode began/occurred jmm today. Associated injury: The patient did not suffer any apparent associated injury. Is a 45-year-old female with history of hypertension the presents emerged department with complaints of near syncope/dizziness beginning earlier today. Patient recently had her medication changed by her bilingual trainer whom advised her to double up her all her medications. Patient states that she took single dose of her medications this morning. Patient states that her vision is collapsing when she stands up. Denies chest pain or shortness of breath.. Historical: - Allergies: 11:04 No Known Allergies; ph - PMHx: 11:04 Hypercholesterolemia; Hypertensive disorder; ph - Immunization history:: Adult Immunizations up to date. - Social history:: Smoking status: Patient reports the use of cigarette tobacco products, smokes one pack cigarettes per day. ROS: 10:42 Constitutional: Negative for fever, chills, and weight loss, Cardiovascular: Negative jmm for chest pain, palpitations, and edema, Respiratory: Negative for shortness of breath, cough, wheezing, and pleuritic chest pain. 10:42 Neuro: Positive for dizziness, near syncope. 10:42 All other systems are negative. Exam: 10:42 Constitutional: This is a well developed, well nourished patient who is awake, alert, jmm and in no acute distress. Head/Face: atraumatic. Eyes: EOMI, no conjunctival erythema appreciated ENT: Moist Mucus Membranes Neck: Trachea midline, Supple Chest/axilla: Normal chest wall appearance and motion. Cardiovascular: Regular rate and rhythm. No edema appreciated Respiratory: Normal respirations, no respiratory distress appreciated Abdomen/GI: Non distended, soft Back: Normal ROM Skin: General appearance color normal MS/ Extremity: Moves all extremities, no obvious deformities appreciated, no edema noted to the lower extremities Neuro: Awake and alert Psych: Behavior is normal, Mood is normal, Patient is cooperative and pleasant Vital Signs: 11:00 BP 193 / 97; Pulse 46; Resp 18; Temp 98.1; Pulse Ox 100% on R/A; Weight 56.7 kg; Height ph 5 ft. 4 in. (162.56 cm); 12:13 BP 194 / 103; Pulse 42; Resp 16; Pulse Ox 100% on R/A; ab2 13:01 BP 198 / 86; Pulse 46; Resp 16; Pulse Ox 99% on R/A; ab2 14:26 BP 167 / 79; Pulse 47; Resp 17; Pulse Ox 98% on R/A; ab2 11:00 Body Mass Index 21.46 (56.70 kg, 162.56 cm) ph MDM: 10:42 Patient medically screened. [facility] 13:56 Data reviewed: vital signs, nurses notes. Counseling: I had a detailed discussion with vero the patient and/or guardian regarding: the historical points, exam findings, and any diagnostic results supporting the discharge/admit diagnosis, lab results, radiology results, the need for outpatient follow up, to return to the emergency department if symptoms worsen or persist or if there are any questions or concerns that arise at home. ED course: Patient states she feels much better. Blood pressure is lower. Patient states that she did not take the double dose due to not having access to blood pressure cuff. Patient was advised to take double the dose if her blood pressure was over 180 systolic. I did discuss the patient's case with whom stated that he will follow with the patient in clinic.. 05/25 10:44 Order name: Basic Metabolic Panel; Complete Time: 12:53 [facility] 05/25 10:44 Order name: CBC with Diff; Complete Time: 11:53 [facility] 05/25 10:44 Order name: Magnesium; Complete Time: 12:53 [facility] 05/25 10:44 Order name: NT PRO-BNP; Complete Time: 12:53 [facility] 05/25 10:44 Order name: Troponin HS; Complete Time: 12:53 [facility] 05/25 12:15 Order name: CREATININE WHOLE BLOOD; Complete Time: 12:20 [facility] 05/25 10:44 Order name: XRAY Chest (1 view); Complete Time: 11:06 [facility] 05/25 10:44 Order name: EKG; Complete Time: 10:45 [facility] 05/25 10:44 Order name: Cardiac monitoring; Complete Time: 12:10 [facility] 05/25 10:44 Order name: EKG - Nurse/Tech; Complete Time: 12:10 [facility] 05/25 11:07 Order name: CT Head Brain wo Cont; Complete Time: 12:12 [facility] 05/25 11:07 Order name: CT Head Angio; Complete Time: 12:12 [facility] 05/25 11:08 Order name: CT Neck Angio; Complete Time: 12:20 [facility] 05/25 10:44 Order name: IV Saline Lock; Complete Time: 12:10 [facility] 05/25 10:44 Order name: Labs collected and sent; Complete Time: 12:10 [facility] 05/25 10:44 Order name: O2 Per Protocol; Complete Time: 12:10 [facility] 05/25 10:44 Order name: O2 Sat Monitoring; Complete Time: 12:10 [facility] 05/25 12:06 Order name: Labs - recollect needed: recollect c7; Complete Time: 12:10 bd Administered Medications: 13:01 Drug: hydrALAZINE 10 mg Route: IVP; Site: left wrist; ab2 14:00 Follow up: Response: No adverse reaction; Pain is decreased iw Disposition: 16:54 Co-signature as Attending Physician, Sam Pina MD. rn Disposition Summary: 05/25/21 13:57 Discharge Ordered Location: Home [facility] Condition: Stable [facility] Diagnosis - Hypertension [facility] Followup: [facility] - With: Jac Rodriguez MD - When: 1 - 2 days - Reason: Recheck today's complaints, Continuance of care, Re-evaluation by your physician Discharge Instructions: - Discharge Summary Sheet [facility] - Hypertension, Adult [facility] Forms: - Medication Reconciliation Form [facility] - Thank You Letter [facility] - Antibiotic Education [facility] - Work release form [facility] - Prescription Opioid Use [facility] Signatures: Dispatcher [employer] Sheyla Michael Joel, PA PA jmm Nieto, Roman, MD MD rn Hall, Patricia, RN RN Aamir Guillaume ab2 Rosenda Galindo RN iw
[2021-05-25 14:35] VITALS: TEMP 98.1
[2021-05-25 15:02] VITALS: BP 198/86; O2SAT 99
--- NOTE | 2021-05-26 08:32 | EKG ---
Test Date: 2021-05-25 Test Time: 11:21:56 Finance Mgr: YULI MEASUREMENT RESULTS: Intervals: Rate: 41 KS: 160 QRSD: 80 QT: 486 QTc: 400 [place]: P: 83 KS: 160 QRS: 80 T: 78 INTERPRETIVE STATEMENTS: Marked sinus bradycardia Moderate voltage criteria for LVH, may be normal variant Abnormal ECG Compared to ECG 09/28/2020 12:37:11 Left ventricular hypertrophy now present Electronically Signed On 05-26-21 08:28:16 CDT by Jac Rodriguez
== END 2021-05-25 14:26 | disposition home or self-care (01) ==
LOC: ER 10:14
DX: I10 Essential (primary) hypertension (principal); F17.210 Nicotine dependence, cigarettes, uncomplicated
CPT/HCPCS: 93005; 85025; 80048; 36415; 83735; 82565; 84484; 83880; 70450; 70496; 70498; 71045; 96374; 99284; Q9967; J0360

== ENCOUNTER 2024-01-12 14:55 | Inpatient (IN) | payer BC ==
--- OUTSIDE RECORDS SUMMARY | 2024-01-12 14:58 | XMS REPORT | Continuity of Care Document ---
Author Name Unknown Address [address] [facility] [address] [place] [address] [facility] thconnect Address [address] [facility] [address] [place] [address] Care Team Providers Care Show Card Letterer Name Role Phone NICO GORMAN Attending Clinician Unavailable CORNELIA_KATIUSKAZW_Kadinicolea_S Attending Clinician UnavailSariah Edwards Attending Clinician UnavailLISA Edwards Attending Clinician Unavail able CRYSTAL Attending Clinician Unavailable CORNELIA_GCBZW_Kadinicolea_S Admitting Clinician UnavailChevy Salazar V Admitting Clinician Unavailable CRYSTAL Admitting Clinician Unavailable Payers Payer Name Policy Type Policy Number Effective Date Expirati on Date Source Problems Condition Name Condition Details Condition Category Status Onset Date Resolution Date Last Treatment Date Treating Clinician Comments Source Essential hypertensi on Essential Hypertensi on Problem Active 08-08 00:00: 00 [facility] Hypertensi ve disorder Hypertensi ve Disorder Problem Active 08-08 00:00: 00 [facility] Nausea Nausea Problem Active 08-08 00:00: 00 [facility] Allergies, Adverse Reactions, Alerts Allergy Name Allergy Type Status Severity Reaction(s) Onset Date Inactive Date Treating Clinician Comments Source No Known Allergie s DA Active U 03-09 00:00: 00 [facility] Social History Smoking Status Start Date Stop Date Source Light Tobacco Smoker [facility] Medications Ordered Medication Name Filled Medication Name Start Date Stop Date Current Medication? Ordering Clinician Indication Dosage Frequency Signature (SIG) Comments Components Source hydrochloro thiazide 25 mg tablet Take 1 tablet every day by oral route in the morning, for blood pressure. hydrochloro thiazide 25 mg tablet Take 1 tablet every day by oral route in the morning, for blood pressure. No 1 Q1D hydrochlor othiazide 25 mg tablet Take 1 tablet every day by oral route in the morning, for blood pressure. [facility] losartan 25 mg tablet Take 1 tablet every day by oral route in the evening, for blood pressure. losartan 25 mg tablet Take 1 tablet every day by oral route in the evening, for blood pressure. No 1 Q1D losartan 25 mg tablet Take 1 tablet every day by oral route in the evening, for blood pressure. [facility] ondansetron 8 [address] ing tablet Place 1 tablet twice a day by translingua l route as needed, for nausea/vomi ting. ondansetron [address] tablet [address] 1 tablet twice a day by translingua l route as needed, for nausea/vomi ting. No 1 BID ondansetro n 8 mg disinte[address] ting tablet Place 1 tablet twice a day by translingu al route as needed, for nausea/vom iting. [facility] Vital Signs Vital Name Observation Time Observation Value Comments S ource BP Diastolic 2023-08-24 00:00:00 116 mm[Hg] Mahendra agorda [facility] BP Systolic 2023-08-24 00:00:00 197 mm[Hg] Arjun andreas [facility] Height 2023-08-24 00:00:00 64 [in_i] Conrado orda [facility] Body Weight 2023-08-24 00:00:00 3 [oz_av] Pelon britt [facility] BMI (Body Mass Index) 2023-08-24 00:00:00 22 kg/m2 [facility] Body Weight 2023-08-09 00:00:00 2038 [oz_av] Pelon seymourorda [facility] BP Diastolic 2023-08-09 00:00:00 121 mm[Hg] Mahendra smitha [facility] Height 2023-08-09 00:00:00 64 [in_i] Conrado koch [facility] BP Systolic 2023-08-09 00:00:00 231 mm[Hg] Arjun gibsba [facility] BMI (Body Mass Index) 2023-08-09 00:00:00 21.9 kg/m2 [facility] Encounters Start Date/Time End Date/Time Encounter Type Admission Type Attending Clinicians Care Facility Care Department Encounter ID Source 2023-08-24 00:00:00 2023-08-24 00:00:00 Melissa Chávez, ISOTOPE TECHNICIAN: [place] [address] , Ph. [facility] [id number] [facility] 2023-08-09 00:00:00 2023-08-09 00:00:00 Melissa Chávez, ISOTOPE TECHNICIAN: [address] [place] [address] , Ph. [facility] [id number] [facility] 2023-07-14 12:36:00 2023-07-14 14:27:00 Emergency ER NICO GORMAN [id number] 2022-12-19 00:00:00 2022-12-19 00:00:00 Outpatient GC_[email or web address] dibrooklynn_S [facility] [id number] [facility] 2022-03-11 11:50:00 2022-03-11 11:50:00 Outpatient Sariah Foster [facility] [id number] 36 [facility] 2022-02-16 17:23:00 2022-02-16 17:23:00 Outpatient LUCIA LISA CHAVEZ [facility] [id number] [facility] 2021-09-17 00:00:00 2021-09-17 00:00:00 Outpatient [facility]ACQUE [facility] [id number] [facility] Results Test Description Test Time Test Comments Results Result Co mments Source UR HCG [id number] 11:08:00* Test Item Value Reference Range Interpretation Comme nts UR HCG QUAL (test code = HCGQLU) NEGATIVE NEGATIVE Notes Date/Time Note Provider Source 2022-03-11 17:47:00 [facility] ([facility] Brief Op Note REPORT#:[id number] REPORT STATUS: Signed DATE:03/11/22 TIME:174 PATIENT: FAWN JONES UNIT #: [id number] ROOM/BED: : 73 AGE: 46 SEX: F ATTEND: Sariah Chavez MD ADM AUTHOR: Sariah Chavez MD * ALL edits or amendments must be made on the electronic/computer document * Op/Inv Proc Note - Brief Pre-procedure diagnosis: postmenopausal bleeding, + HCG blood test Post-procedure diagnosis: same as pre procedure dx, endometriosis Procedures performed: RTLH BS endometriosis fulgration excision, SHAHRZAD small and large bowel Primary Surgeon: miguel Research Program Manager(s): maxim smith Anesthesia: general anesthesia Findings: small bowel adhesions to RLQ, sigmoid to left wall, endometriosis post vaginal wall, bilateral lateral hercules Complications: none Estimated blood loss in ml's: 25 Specimens removed/altered: uterus and tubes Drain(s): None Fluids: 1200 lr Urine output: 100 Approach: laparoscopic, robotic Wound class: clean-contaminated Disposition: plan to D/C home Counts: Sponge count: correct Instrument count: correct Needle count: correct at 1755 RPT #: [id number] END OF REPORT [facility]
[2024-01-12] MEDS ORDERED: FAMOTIDINE 20 MG/2 ML VIAL IV ONE (15:35)
[2024-01-12] MEDS ORDERED: LEVALBUTEROL 1.25 MG/3 ML NEB ONE ×2 (15:35→17:48)
[2024-01-12] MEDS ORDERED: METHYLPREDNISOLONE 125 MG INJ ONE (15:35)
[2024-01-12] MEDS ORDERED: IPRATROPIUM BROM 0.5MG/2.5ML ONE (15:35)
[2024-01-12] MEDS ORDERED: Levofloxacin500mg IV 500 MG/100 ML BAG IV ONE (15:36)
[2024-01-12] MEDS ORDERED: Magnesium Sulfate 2gm IVPB 2 G/50 ML BAG IV ONE (15:36)
--- NOTE | 2024-01-12 16:03 | RAD REPORT ---
EXAMINATION: ONE VIEW CHEST XR CLINICAL INDICATION: COPD;Cough TECHNIQUE: Frontal chest projection is submitted. Examination is limited by patient positioning and t echnique. COMPARISON: 05/29/2022 FINDINGS: The lungs are diffusely emphysematous but grossly clear. The heart is normal in size. No displaced fr actures identified. IMPRESSION: COPD without an acute process suspected.
--- NOTE | 2024-01-12 16:20 | ER ---
Nurse's Notes [facility] Name: Allyson Soler Age: 48 yrs Sex: Female : 1975 Arrival Date: 01/12/2024 Time: 14:55 Bed 18 Private MD: Diagnosis: Dyspnea;Hypoxemia;COPD/ Chronic obstructive pulmonary disease with (acute) exacerbation;Tobacco abuse counseling;Tobacco use Presentation: 01/11 15:02 Chief complaint: Patient states: SOB since Tuesday, haven't eaten. No n/v/d. Cough, body tm6 aches. Coronavirus screen: Client denies travel out of the [place] in the last 14 days. Ebola Screen: Patient negative for fever greater than or equal to 101.5 degrees Fahrenheit, and additional compatible Ebola Virus Disease symptoms Patient denies exposure to infectious person. Patient denies travel to an Ebola-affected area in the 21 days before illness onset. No symptoms or risks identified at this time. Initial Sepsis Screen: Does the patient meet any 2 criteria? RR > 20 per min. No. Patient's initial sepsis screen is negative. Does the patient have a suspected source of infection? No. Patient's initial sepsis screen is negative. Risk Assessment: Do you want to hurt yourself or someone else? Patient reports no desire to harm self or others. Onset of symptoms was January 06, 2024. 15:02 Method Of Arrival: Ambulatory tm6 15:02 Acuity: HUMBERTO 3 tm6 Triage Assessment: 15:03 General: Appears distressed, Behavior is cooperative. Pain: Complains of pain in body tm6 aches. EENT: No signs and/or symptoms were reported regarding the EENT system. Neuro: Level of Consciousness is awake, alert, obeys commands, Oriented to person, place, time, situation. Cardiovascular: Patient's skin is warm and dry. Respiratory: Reports shortness of breath cough that is labored breathing since Tuesday Airway is patent Respiratory effort is labored, Respiratory pattern is symmetrical, Onset: The symptoms/episode began/occurred Last Tuesday, the patient has moderate shortness of breath. GI: No signs and/or symptoms were reported involving the gastrointestinal system. Abdomen is flat, non-distended. : No signs and/or symptoms were reported regarding the genitourinary system. Derm: No signs and/or symptoms reported regarding the dermatologic system. Musculoskeletal: Reports body aches. 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 - Infectious Disease History:: Denies. - Social history:: Smoking status: Patient reports the use of cigarette tobacco products, smokes one pack cigarettes per day. Patient uses alcohol, occasionally. Screenin:00 [facility] ED Fall Risk Assessment (Adult) History of falling in the last 3 months, kj2 including since admission No falls in past 3 months (0 pts) Confusion or Disorientation No (0 pts) Intoxicated or Sedated No (0 pts) Impaired Gait No (0 pts) Mobility Assist Device Used No (0 pt) Altered Elimination No (0 pt) Score/Fall Risk Level 0 - 2 = Low Risk Maintained a safe environment, Hourly rounding (assess needs \T\ fall precautionary measures) done. Abuse screen: Denies threats or abuse. Denies injuries from another. Nutritional screening: No deficits noted. Tuberculosis screening: No symptoms or risk factors identified. Assessment: 19:00 Respiratory: Airway is patent Respiratory effort is unlabored, Breath sounds with kj2 rhonchi bilaterally. 19:09 Reassessment: Patient and/or family updated on plan of care and expected duration. Pain kj2 level reassessed. Patient is alert, oriented x 3, equal unlabored respirations, skin warm/dry/pink. 20:00 Reassessment: Patient appears in no apparent distress at this time. Patient and/or kj2 family updated on plan of care and expected duration. Pain level reassessed. Patient is alert, oriented x 3, equal unlabored respirations, skin warm/dry/pink. 21:00 Reassessment: No changes from previously documented assessment. Patient and/or family kj2 updated on plan of care and expected duration. Pain level reassessed. Patient is alert, oriented x 3, equal unlabored respirations, skin warm/dry/pink. 22:35 Reassessment: No changes from previously documented assessment. Patient and/or family kj2 updated on plan of care and expected duration. Pain level reassessed. Patient is alert, oriented x 3, equal unlabored respirations, skin warm/dry/pink. 23:06 Reassessment: called to report fax, no answer to [phone] or listed phone # for nurse. kj2 23:08 Cardiovascular: Rhythm is regular. kj2 23:13 Reassessment: report of fax given to Elyssa on 2nd floor. kj2 23:14 Reassessment: Patient appears in no apparent distress at this time. Patient and/or kj2 family updated on plan of care and expected duration. Pain level reassessed. Patient is alert, oriented x 3, equal unlabored respirations, skin warm/dry/pink. Vital Signs: 15:01 Pulse 77; Resp 25; Temp 97.6(O); Pulse Ox 93% on R/A; Weight 58.97 kg; Height 5 ft. 4 tm6 in. ; 15:02 BP 223 / 118; MAP 146 mmHg; tm6 15:02 Pain 8/10; tm6 15:09 Pulse Ox 89% on R/A; tm6 15:09 Pulse Ox 95% on 2 lpm NC; tm6 15:22 BP 197 / 104; Pulse 55; Resp 18; Pulse Ox 97% ; bp 16:13 BP 165 / 96; Pulse 65; Resp 21; Pulse Ox 94% ; bp 19:11 BP 164 / 82; Pulse 64; Resp 19; Pulse Ox 93% on R/A; kj2 20:00 BP 165 / 90; Pulse 60; Resp 18; Temp 97.9; Pulse Ox 93% ; kj2 22:35 BP 167 / 88; Pulse 66; Resp 18; Temp 98; Pulse Ox 96% on R/A; kj2 15:01 Body Mass Index 22.31 (58.97 kg, 162.56 cm) tm6 15:02 Pain Scale: Adult tm6 ED Course: 14:57 Patient arrived in ED. im 15:02 Jamil Perez MD is Attending Physician. rivas 15:03 Triage completed. tm6 15:03 Arm band placed on right wrist. tm6 15:09 Allergy band placed. tm6 15:12 Garrison Fischer, BRIAN is Primary Nurse. bp 15:45 Initial lab(s) drawn, by tx, sent to lab. First set of blood cultures drawn by me, bp Second set of blood cultures drawn by me, COVID swab sent to lab. Flu and/or RSV swab sent to lab. 15:45 Inserted saline lock: 20 gauge in right forearm, using aseptic technique. Blood bp collected. 15:52 XRAY Chest (1 view) In Process Unspecified. EDMS 16:19 Elizabeth Gongora is Hospitalizing Provider. [facility] 19:00 Report received from BRIAN TORRES. kj2 19:00 Provided Education on: call light. kj2 22:36 No provider procedures requiring assistance completed. Patient admitted, IV remains in kj2 place. Administered Medications: 15:45 Drug: MethylPrednisoLONE IVP 125 mg IVP once Route: IVP; Site: right forearm; bp 16:38 Follow up: Response: No adverse reaction bp 15:45 Drug: Levalbuterol Inhalation 3.75 mg Inhalation once Route: Inhalation; bp 15:45 Drug: NS 0.9% IV 500 ml 500 ml IV at 1 bolus once; to be given as a bolus over 30 bp minutes Volume: 500 ml; Route: IV; Rate: 1 bolus; Site: right forearm; 16:38 Follow up: IV Status: Completed infusion bp 15:45 Drug: NS 0.9% IV 1000 ml IV at 125 ml/hr continuous Route: IV; Rate: 125 ml/hr; Site: bp right forearm; 16:38 Follow up: IV Status: Infusion continued upon admission bp 15:45 Drug: Ipratropium Inhalation Aerosol 0.5 mg Inhalation once Route: Inhalation; bp 15:45 Drug: levofloxacin IVPB 500 mg 100 ml IVPB once over 60 mins Volume: 100 ml; Route: bp IVPB; Infused Over: 60 mins; Site: right forearm; 16:38 Follow up: IV Status: Completed infusion bp 15:45 Drug: Famotidine IVP 20 mg IVP once; dilute with 10 mL 0.9% NaCl; give over 2 minutes bp Route: IVP; Site: right forearm; 16:38 Follow up: Response: No adverse reaction bp 15:45 Drug: Magnesium Sulfate IVPB 2 grams IVPB once over 1 hrs Route: IVPB; Infused Over: 1 bp hrs; Site: right forearm; 16:39 Follow up: IV Status: Completed infusion bp 16:38 Drug: Levalbuterol Inhalation 2.5 mg Inhalation once Route: Inhalation; bp Medication: 19:00 VIS not applicable for this client. kj2 Outcome: 16:20 Decision to Hospitalize by Provider. rivas 23:10 Admitted to Med/surg accompanied by tech, room 215, kj2 23:10 Condition: stable 23:10 Instructed on the need for admit, 23:24 Patient left the ED. kj2 Signatures: Dispatcher [employer] Jamil Becerra MD MD cha Peltier, Brian, RN RN bp Anali Ford Tawney RN RN tm6 Geraldine Campuzano, RN RN kj2
--- NOTE | 2024-01-12 16:20 | EDPHYS ---
Physician Documentation [facility] Name: Allyson Soler Age: 48 yrs Sex: Female : 1975 Arrival Date: 01/12/2024 Time: 14:55 Bed 18 Private MD: ED Physician Jamil Perez HPI: 01/11 15:19 This 48 yrs old Female presents to ER via Ambulatory with complaints of rivas Shortness Of Breath, Cough. 15:19 The patient has shortness of breath at rest, with light activity. Onset: The rivas symptoms/episode began/occurred 3 day(s) ago. Duration: The symptoms are continuous, and are steadily getting worse. The patient's shortness of breath is aggravated by coughing. Associated signs and symptoms: Pertinent positives: non-productive cough. Severity of symptoms: At their worst the symptoms were moderate in the emergency department the symptoms are unchanged. The patient has experienced similar episodes in the past, several times. COLORMAN: 23:09 LMP N/A - Hysterectomy, Not kj2 Historical: - Allergies: 15:03 Latex; tm6 - PMHx: 15:03 Hypercholesterolemia; Hypertensive disorder; tm6 - PSHx: 15:03 hysterectomy; melanoma removed (hysterectomy); tm6 - Immunization history:: Client reports receiving the 2nd dose of the Covid vaccine. - Infectious Disease History:: Denies. - Social history:: Smoking status: Patient reports the use of cigarette tobacco products, smokes one pack cigarettes per day. Patient uses alcohol, occasionally. ROS: 15:20 Constitutional: Negative for fever, chills, and weight loss, Eyes: Negative for injury, rivas pain, redness, and discharge, ENT: Negative for injury, pain, and discharge, Neck: Negative for injury, pain, and swelling, Cardiovascular: Negative for chest pain, palpitations, and edema, Abdomen/GI: Negative for abdominal pain, nausea, vomiting, diarrhea, and constipation, Back: Negative for injury and pain, : Negative for injury, bleeding, discharge, and swelling, MS/Extremity: Negative for injury and deformity, Skin: Negative for injury, rash, and discoloration, Neuro: Negative for headache, weakness, numbness, tingling, and seizure, Psych: Negative for depression, anxiety, suicide ideation, homicidal ideation, and hallucinations, Allergy/Immunology: Negative for hives, rash, and allergies, Endocrine: Negative for neck swelling, polydipsia, polyuria, polyphagia, and marked weight changes, Hematologic/Lymphatic: Negative for swollen nodes, abnormal bleeding, and unusual bruising, 15:20 Respiratory: Positive for cough, shortness of breath, wheezing, inspiratory, expiratory, Exam: 15:20 Constitutional: This is a well developed, well nourished patient who is awake, alert, rivas and in no acute distress. Head/Face: Normocephalic, atraumatic. Eyes: Pupils equal round and reactive to light, extra-ocular motions intact. Lids and lashes normal. Conjunctiva and sclera are non-icteric and not injected. Cornea within normal limits. Periorbital areas with no swelling, redness, or edema. ENT: Nares patent. No nasal discharge, no septal abnormalities noted. Tympanic membranes are normal and external auditory canals are clear. Oropharynx with no redness, swelling, or masses, exudates, or evidence of obstruction, uvula midline. Mucous membranes moist. Neck: Trachea midline, no thyromegaly or masses palpated, and no cervical lymphadenopathy. Supple, full range of motion without nuchal rigidity, or vertebral point tenderness. No Meningismus. Chest/axilla: Normal chest wall appearance and motion. Nontender with no deformity. No lesions are appreciated. Cardiovascular: Regular rate and rhythm with a normal S1 and S2. No gallops, murmurs, or rubs. Normal PMI, no JVD. No pulse deficits. Abdomen/GI: Soft, non-tender, with normal bowel sounds. No distension or tympany. No guarding or rebound. No evidence of tenderness throughout. Back: No spinal tenderness. No costovertebral tenderness. Full range of motion. Skin: Warm, dry with normal turgor. Normal color with no rashes, no lesions, and no evidence of cellulitis. MS/ Extremity: Pulses equal, no cyanosis. Neurovascular intact. Full, normal range of motion. Neuro: Awake and alert, GCS 15, oriented to person, place, time, and situation. Cranial nerves II-XII grossly intact. Motor strength 5/5 in all extremities. Sensory grossly intact. Cerebellar exam normal. Normal gait. Psych: Awake, alert, with orientation to person, place and time. Behavior, mood, and affect are within normal limits. 15:20 Respiratory: mild respiratory distress is noted, Respirations: labored breathing, that is moderate, Breath sounds: bronchial sounds, that are mild, decreased breath sounds, that are moderate, rhonchi, that are moderate, stridor, is not appreciated, + upper airway congestion. wheezing: expiratory Respiratory rate: 25 16:22 ECG was reviewed by the Attending Physician. [facility] Vital Signs: 15:01 Pulse 77; Resp 25; Temp 97.6(O); Pulse Ox 93% on R/A; Weight 58.97 kg; Height 5 ft. 4 tm6 in. ; 15:02 BP 223 / 118; MAP 146 mmHg; tm6 15:02 Pain 8/10; tm6 15:09 Pulse Ox 89% on R/A; tm6 15:09 Pulse Ox 95% on 2 lpm NC; tm6 15:22 BP 197 / 104; Pulse 55; Resp 18; Pulse Ox 97% ; bp 16:13 BP 165 / 96; Pulse 65; Resp 21; Pulse Ox 94% ; bp 19:11 BP 164 / 82; Pulse 64; Resp 19; Pulse Ox 93% on R/A; kj2 20:00 BP 165 / 90; Pulse 60; Resp 18; Temp 97.9; Pulse Ox 93% ; kj2 22:35 BP 167 / 88; Pulse 66; Resp 18; Temp 98; Pulse Ox 96% on R/A; kj2 15:01 Body Mass Index 22.31 (58.97 kg, 162.56 cm) tm6 15:02 Pain Scale: Adult tm6 MDM: 15:02 Medical Screening Exam initiated [facility] 15:30 Differential diagnosis: Anemia Anxiety Reaction asthma, Bronchitis CHF exacerbation, rivas Chronic Obstructive Pulmonary Disease obstructed airway, bronchitis, flu, URI, Myocardial Infarction pneumonia, Pneumothorax pulmonary edema, Pulmonary Embolism reactive airway disease, Sepsis Unstable Angina. Antibiotic administration: Levaquin given. Differential Diagnosis: Obstructed Airway Bronchitis Influenza Upper Respiratory Infection Sinusitis Pharyngitis Viral Syndrome Pneumonia. Immunization status: Influenza vaccine: within last 5 years. Data reviewed: vital signs, nurses notes, lab test result(s), EKG, radiologic studies, plain films. Consideration of Admission/Observation Patient was admitted/placed on observation. Escalation of care including admission/observation considered. I considered the following discharge prescriptions or medication management in the emergency department Medications were administered in the Emergency Department. See MAR. Independent interpretation of the following test(s) in the Emergency Department EKG: See my EKG interpretation above. Test considered but Not performed: CT: NO CT CHEST. Historians other than the Patient: Spouse/Significant Other: WELL INFORMED. Care significantly affected by the following chronic conditions: Hypertension, HIGH CHOLESTEROL. Counseling: I had a detailed discussion with the patient and/or guardian regarding the historical points, exam findings, and any diagnostic results supporting the discharge/admit diagnosis, lab results, radiology results. 01/11 15:18 Order name: Basic Metabolic Panel; Complete Time: 16:44 [facility] 01/11 15:18 Order name: CBC with Diff; Complete Time: 16:44 [facility] 01/11 15:18 Order name: LFT's; Complete Time: 16:44 [facility] 01/11 15:18 Order name: Magnesium; Complete Time: 16:44 [facility] 01/11 15:18 Order name: NT PRO-BNP; Complete Time: 16:44 [facility] 01/11 15:18 Order name: PT-INR; Complete Time: 16:44 [facility] 01/11 15:18 Order name: Troponin HS; Complete Time: 16:44 [facility] 01/11 15:18 Order name: Blood Culture Adult (2) [facility] 01/11 15:18 Order name: SARS RAPID; Complete Time: 16:44 [facility] 01/11 15:18 Order name: Flu; Complete Time: 16:44 [facility] 01/11 15:18 Order name: XRAY Chest (1 view); Complete Time: 16:13 [facility] 01/11 15:18 Order name: EKG; Complete Time: 15:18 [facility] 01/11 15:18 Order name: Cardiac monitoring; Complete Time: 15:21 [facility] 01/11 15:18 Order name: EKG - Nurse/Tech; Complete Time: 16:10 [facility] 01/11 15:18 Order name: IV Saline Lock; Complete Time: 16:10 [facility] 01/11 15:18 Order name: Labs collected and sent; Complete Time: 16:10 [facility] 01/11 15:18 Order name: O2 Per Protocol; Complete Time: 15:21 [facility] 01/11 15:18 Order name: O2 Sat Monitoring; Complete Time: 15:20 [facility] EC:22 Rate is 72 beats/min. Rhythm is regular. QRS [place] is Normal. NM interval is normal. QRS rivas interval is normal. QT interval is normal. No Q waves. T waves are Normal. No ST changes noted. Clinical impression: NSR w/ Non-specific ST/T Changes and No evidence of ischemia. Interpreted by me. Reviewed by me. Administered Medications: 15:45 Drug: MethylPrednisoLONE IVP 125 mg IVP once Route: IVP; Site: right forearm; bp 16:38 Follow up: Response: No adverse reaction bp 15:45 Drug: Levalbuterol Inhalation 3.75 mg Inhalation once Route: Inhalation; bp 15:45 Drug: NS 0.9% IV 500 ml 500 ml IV at 1 bolus once; to be given as a bolus over 30 bp minutes Volume: 500 ml; Route: IV; Rate: 1 bolus; Site: right forearm; 16:38 Follow up: IV Status: Completed infusion bp 15:45 Drug: NS 0.9% IV 1000 ml IV at 125 ml/hr continuous Route: IV; Rate: 125 ml/hr; Site: bp right forearm; 16:38 Follow up: IV Status: Infusion continued upon admission bp 15:45 Drug: Ipratropium Inhalation Aerosol 0.5 mg Inhalation once Route: Inhalation; bp 15:45 Drug: levofloxacin IVPB 500 mg 100 ml IVPB once over 60 mins Volume: 100 ml; Route: bp IVPB; Infused Over: 60 mins; Site: right forearm; 16:38 Follow up: IV Status: Completed infusion bp 15:45 Drug: Famotidine IVP 20 mg IVP once; dilute with 10 mL 0.9% NaCl; give over 2 minutes bp Route: IVP; Site: right forearm; 16:38 Follow up: Response: No adverse reaction bp 15:45 Drug: Magnesium Sulfate IVPB 2 grams IVPB once over 1 hrs Route: IVPB; Infused Over: 1 bp hrs; Site: right forearm; 16:39 Follow up: IV Status: Completed infusion bp 16:38 Drug: Levalbuterol Inhalation 2.5 mg Inhalation once Route: Inhalation; bp Disposition Summary: 01/12/24 16:20 Hospitalization Ordered Notes: Hospitalization Status: Observation rivas Provider: Elizabeth Gongora cha Location: Telemetry/MedSurg (observation) rivas Condition: Stable rivas Problem: new rivas Symptoms: have improved rivas Bed/Room Type: Standard rivas Room Assignment: 215(01/12/24 22:07) cg Diagnosis - Dyspnea rivas - Hypoxemia rivas - COPD/ Chronic obstructive pulmonary disease with (acute) exacerbation rivas - Tobacco abuse counseling rivas - Tobacco use rivas Forms: - Medication Reconciliation Form rivas - SBAR form rivas - Leadership Thank You Letter rivas Signatures: Dispatcher [employer] Jamil Becerra MD MD cha Garcia, Cindy RN RN cg Garrison Fischer RN RN bp Masterson, Tawney, RN RN tm6 Corrections: (The following items were deleted from the chart) 22:07 16:20 rivas
[2024-01-12 16:33] LABS: SARS-CoV-2 Antigen CONTROL BLUE LINE VIS/BG OK; SARS-CoV-2 Antigen Rapid Res Negative (Negative)
[2024-01-12 16:34] LABS: Absolute Eosinophils 0.1 K/uL (0-0.5); Absolute Lymphocytes (CBC) 2.2 K/uL (0.7-4.9); Absolute Monocytes 0.8 K/uL (0.1-1.3); Absolute Neutrophil 4.8 K/uL (1.8-8.0); Basophils % 0.5 % (0-1.3); Eosinophils % 0.8 % (0-4.4); Hematocrit 46.4 % (36.0-45.0); Hemoglobin 15.7 g/dL (12.0-15.0); Lymphocytes % 27.5 % (15.3-44.8); MCH 30.4 pg (27.0-35.0); MCHC 33.7 g/dL (32.0-36.0); MCV 90.2 fL (80-100); MPV 9.1 fL (7.6-11.3); Monocytes % 10.4 % (3.3-12.3); Neutrophils % 60.8 % (41.7-73.7); Nucleated Red Blood Cells % 0.1 % (0-0); Platelets 173 thou/uL (152-406); RBC Red Blood Cell Count 5.15 M/uL (3.86-4.86); Red Cell Distribution Width 12.8 % (12.1-15.2)
[2024-01-12 16:36] LABS: PT Prothrombin Time 11.8 SECONDS (9.4-12.5); Protime INR 1.06
[2024-01-12 16:42] LABS: ALT/SGPT 68 U/L (13-56); AST/SGOT 69 U/L (15-37); Albumin 3.3 g/dL (3.4-5.0); Albumin/Globulin Ratio 0.8 (1.1-1.8); Alkaline Phosphatase 85 U/L (45-117); Anion Gap 10.8 mEq/L (5.0-15.0); BUN Blood Urea Nitrogen 23 mg/dL (7-18); Bicarbonate 25 mEq/L (21-32); Bilirubin Direct < 0.2 mg/dL (0-0.2); Bilirubin Indirect, Calculated 0.3 mg/dL (0.2-0.8); Bilirubin Total 0.5 mg/dL (0.2-1.0); Globulin 4.2 g/dL (2.3-3.5); Glomerular Filtration Rate 65 ml/min (=/>90); Glucose Level 89 mg/dL (74-106); Magnesium 1.9 mg/dL (1.6-2.4); NT PRO-BNP 164 pg/mL (<125); Potassium 3.8 mEq/L (3.5-5.1); Protein, Total 7.5 g/dL (6.4-8.2); Sodium Level 138 mEq/L (136-145); Troponin High Sensitivity 51.3 pg/mL (<58.9)
--- NOTE | 2024-01-12 17:41 | P.HP ---
Certification for Inpatient With expected LOS: >2 Midnights Practitioner: I am a practitioner with admitting privileges, knowledge of patient current condition, hospital course, and medical plan of care. Services: Services provided to patient in accordance with Admission requirements found in Title 42 Section 412.3 of the Code of Federal Regulations Patient History Date of Service: 01/12/24 Reason for admission: Dyspnea History of Present Illness: This is 48 years old female patient with past medical history notable for COPD, hypertension, noncompliant with medication and follow-up who presented to emergency room for evaluation of dyspnea for the past 3 days. She did describe dyspnea severe, continuous, steady worsening, associated with nonproductive cough, aggravated by lying flat, not relieved by [id number] cough medicine. The last time he was admitted for acute exacerbation of COPD was 1 year ago. She states that she does not take any medicine on a regular basis at home. At this time she got flared up because everybody was sick with a cold at work. Upon arrival at emergency room she is hypertensive blood pressure 223/180, heart rate 77 tachypnea with respiratory rate 25, saturation by pulse oximetry 93% on room air, dropped to 89% on room air on coughing, improved to 95% on 2 L nasal cannula. Her chest x-ray shows no pneumothorax or pneumonia but hyperinflated lung. She tested negative for influenza A and B, negative for SARS-CoV-2. The patient received 500 mL of normal saline bolus x 2, 125 mg methylprednisolone x 1, started on DuoNeb, 500 mg levofloxacin. Internal medicine was called for admission. Allergies latex Adverse Reaction (Verified 05/28/22 15:57) Rash Home Medications: Albuterol Inhaler [Ventolin Inhaler*] 2 puff IH Q4H PRN 05/28/22 Benzonatate [Tessalon Perle*] 100 mg PO TID PRN 05/28/22 Clonidine HCl [Catapres*] 0.1 mg PO TID 05/28/22 Escitalopram Oxalate [Lexapro] 10 mg PO DAILY 05/28/22 Folic Acid 1 mg PO DAILY 05/28/22 Hydralazine [Apresoline*] 25 mg PO TID 05/28/22 Metoprolol Tartrate [Lopressor*] 25 mg PO BID 05/28/22 Spironolactone 50 mg PO DAILY 05/28/22 clonazePAM [Klonopin*] 0.5 mg PO BID 05/28/22 Albuterol Inhaler [Ventolin Inhaler*] 2 puff IH Q6H PRN #1 05/29/22 Methylprednisolone [Medrol dosepack] 4 mg PO DIRECTED #1 ayan 05/29/22 Mometasone/Formoterol [Dulera 200 Mcg-5 Mcg Inhaler] 13 gm IH BID #1 05/29/22 - Past Medical/Surgical History -: birthmark mole turned cancer at age 8. -: HTN (Dr Rodriguez) -: CHOL -: Skin cancer removal leg -: hysterectomy 03/11/22 for potential CA. 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 - Family History Mother -: Heart disease Notes: pacemaker - Social History Alcohol use: Yes CD- Drugs: No Caffeine use: Yes Review of Systems Other: Consitutional; fever(-), chills (-), rigor(-), night sweat(-), unintentional weight loss(-) HEENT; epistaxis (-), otorrhea (-), otalgia (-) Respiratory; shortness of breath (+), wheezing (-), cough (+), sputum (-), pleuritic chest pain (-) Cardiovascular; chest pain (-), peripheral edema (-), paroxysmal nocturnal dyspnea (-), orthopnea (-) Gastrointestinal; nausea (-), vomiting (-), abdominal pain (-), diarrhea (-), constipation (-), melena (-), hematochezia (-) Urinary; urinary frequency (-), dysuria (-), urgency (-), flank pain (-), gross hematuria (-) Skin; rash (-), 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 General: acutely ill looking, in mild respiratory distress,. HEENT: Normocephalic, atraumatic,. Neck: Supple, without JVD or goiter or thyroid mass. Respiratory: Decreased breath sound bilaterally, clear to auscultation bilaterally, no crackles no wheezing or rhonchi. Cardiovascular: Regular rate and rhythm, S1, S2 normal, no murmur no gallop. Gastrointestinal: Normal bowel sounds, nondistended, nontender, No ascites, , No masses, no hepatosplenomegaly. Musculoskeletal: No clubbing, No peripheral edema. Integumentary: No rashes. Lymphatics: No axilla or cervical lymphadenopathy. Neurology; alert awake oriented x3, no focal neurologic deficit - Studies Laboratory Data (last 24 hrs) 01/12/24 01/12/24 01/12/24 15:45 15:45 15:45 WBC 7.90 Hgb 15.7 H Hct 46.4 H Plt Count 173 PT 11.8 INR 1.06 Sodium 138 Potassium 3.8 BUN 23 H Creatinine 1.04 H Glucose 89 Magnesium 1.9 Total Bilirubin 0.5 AST 69 H ALT 68 H Alkaline Phosphatase 85 Microbiology Data (last 24 hrs): 01/12/24 15:45 Nasopharnyx Influenza Type A Antigen Screen - Final 01/12/24 15:45 Nasopharnyx Influenza Type B Antigen Screen - Final Assessment and Plan - Plan This is 48 years old female patient with past medical history notable for COPD with frequent exacerbation requiring hospitalization, hypertension, noncompliant with medication and follow-up who presented to emergency room for 3 days of worsening dyspnea and admitted on general medical floor. #1 mild acute hypoxic respiratory failure secondary to #2 #2 acute exacerbation of COPD #3 uncontrolled hypertension No pneumonia or pneumothorax on chest x-ray, unremarkable left finding, negative influenza A and B and COVID-19 Will continue supplemental oxygen therapy by nasal cannula to keep saturation on 92%, continue IV methylprednisolone, scheduled DuoNeb, antitussive, levofloxacin 500 mg once a day, IV hydralazine as needed for severe hypertension. - Advance Directives Does patient have a Living Will: No Does patient have a Durable POA for Healthcare: No
[2024-01-12] MEDS ORDERED: GUAIFENESIN/CODEINE 5ML UCUP PO PRN (17:44)
[2024-01-12] MEDS ORDERED: MAGNESIUM HYDROXIDE 8% 30 ML PO PRN (17:44)
[2024-01-12] MEDS ORDERED: ONDANSETRON 4 MG/2 ML VIAL IV PRN (17:44)
[2024-01-12] MEDS: ENOXAPARIN 40 MG/0.4 ML SQ SCH (18:00)
[2024-01-12] MEDS: ALBUTEROL 2.5 MG/3 ML NEB SOL NEB SCH (19:00)
[2024-01-12] MEDS: IPRATROPIUM BROM 0.5MG/2.5ML NEB SCH (19:00)
[2024-01-12] MEDS: BENZONATATE 100 MG CAP PO SCH (21:00)
[2024-01-12] MEDS ORDERED: ACETAMINOPHEN 325 MG TABLET ONE (22:46)
[2024-01-12] MEDS: ACETAMINOPHEN 325 MG TABLET PO PRN (22:52)
[2024-01-12] MEDS ORDERED: BENZONATATE 100 MG CAP PO ONE (22:57)
[2024-01-12] MEDS ORDERED: ENOXAPARIN 40 MG/0.4 ML SQ ONE (22:58)
[2024-01-13] MEDS: METHYLPREDNISOLONE 40 MG INJ IV SCH (00:04)
[2024-01-13] MEDS: HYDRALAZINE HCL 20 MG/ML VIAL IV PRN (00:10)
[2024-01-13 00:54] VITALS: BMI 21.1
[2024-01-13 05:27] LABS: Anion Gap 9.5 mEq/L (5.0-15.0); Magnesium 2.2 mg/dL (1.6-2.4); Potassium 3.5 mEq/L (3.5-5.1)
[2024-01-13] MEDS: METOPROLOL TAR 25 MG TAB PO SCH (06:09)
[2024-01-13] MEDS: POTASSIUM CL SA 10 MEQ TAB PO ONE (06:09)
[2024-01-13] MEDS: POTASS/SODIUM PHOSPHATE 1 PKT POWD.PACK ONE (10:15)
[2024-01-13] MEDS: POTASS/SODIUM PHOSPHATE 1 PKT POWD.PACK PO SCH (10:28)
[2024-01-13] MEDS: cloNIDine HCL 0.1 MG TAB PO SCH (10:29)
[2024-01-13] MEDS: HYDRALAZINE HCL 25 MG TABLET PO SCH (10:29)
[2024-01-13] MEDS: SPIRONOLACTONE 25 MG TABLET PO SCH (10:30)
[2024-01-13] MEDS: ESCITALOPRAM 20 MG TAB PO SCH (10:30)
[2024-01-13] MEDS: ACETAMINOPHEN 500 MG TAB PO PRN (10:35)
--- NOTE | 2024-01-13 12:38 | P.PN ---
Subjective Date of Service: 01/13/24 Chief Complaint: Dyspnea Subjective: No new changes She is complaining of a headache, intractable cough which prevented her from sleeping, dyspnea on minimal exertion. She reports that she quit smoking 10 years ago, she used to smoking 1 pack a day for almost 15 years. Physical Examination - Vital Signs Temperature: 97.9 F Blood Pressure: 169/80 Pulse: 63 Respirations: 20 Pulse Ox (%): 95 - Physical Exam Other Physical/Emotional Findings: - Physical Exam. General: acutely ill looking, in mild respiratory distress,. HEENT: Normocephalic, atraumatic,. Neck: Supple, without JVD or goiter or thyroid mass. Respiratory: Decreased breath sound bilaterally, clear to auscultation bilaterally, no crackles no wheezing or rhonchi. Cardiovascular: Regular rate and rhythm, S1, S2 normal, no murmur no gallop. Gastrointestinal: Normal bowel sounds, nondistended, nontender, No ascites, , No masses, no hepatosplenomegaly. Musculoskeletal: No clubbing, No peripheral edema. Integumentary: No rashes. Lymphatics: No axilla or cervical lymphadenopathy. Neurology; alert awake oriented x3, no focal neurologic deficit - Studies Laboratory Data (last 24 hrs) 01/12/24 01/12/24 01/12/24 15:45 15:45 15:45 WBC 7.90 Hgb 15.7 H Hct 46.4 H Plt Count 173 PT 11.8 INR 1.06 Sodium 138 Potassium 3.8 BUN 23 H Creatinine 1.04 H Glucose 89 Magnesium 1.9 Total Bilirubin 0.5 AST 69 H ALT 68 H Alkaline Phosphatase 85 Microbiology Data (last 24 hrs): 01/12/24 15:45 Nasopharnyx Influenza Type A Antigen Screen - Final 01/12/24 15:45 Nasopharnyx Influenza Type B Antigen Screen - Final Assessment And Plan - Plan This is 48 years old female patient, ex-smoker [id number] with past medical history notable for COPD with frequent exacerbation requiring hospitalization, hypertension, noncompliant with medication and follow-up who presented to emergency room for 3 days of worsening dyspnea and admitted on general medical floor. #1 mild acute hypoxic respiratory failure secondary to #2 #2 acute exacerbation of COPD #3 uncontrolled hypertension She is very symptomatic with productive cough and headache, dyspnea on minimal exertion, stable on 2 L nasal cannula, no pneumonia or pneumothorax on chest x- ray on admission, negative influenza A and B and COVID-19 Will continue supplemental oxygen by nasal cannula , continue IV methylprednisolone 40 mg every 8 hours, scheduled DuoNeb, antitussive with scheduled Tessalon and codeine cough syrup as needed, levofloxacin 500 mg once a day, continue on clonidine, metoprolol, hydralazine, spironolactone yesterday, IV hydralazine as needed for severe hypertension.
[2024-01-13] MEDS: Levofloxacin500mg IV 500 MG/100 ML BAG IV SCH (14:56)
[2024-01-14 07:40] LABS: Phosphorus 2.9 mg/dL (2.5-4.9)
--- NOTE | 2024-01-14 11:19 | P.PN ---
Subjective Date of Service: 01/14/24 Chief Complaint: Dyspnea Patient states that she is not doing well however she seems to be more comfortable, less cough, her blood pressure started to improved with oral hypertensive regimen restarted here. No overnight event noted. . Review of Systems Other: Consitutional; fever(-), chills (-), rigor(-), night sweat(-), unintentional weight loss(-) HEENT; epistaxis (-), otorrhea (-), otalgia (-) Respiratory; shortness of breath (+), wheezing (+), cough (+), sputum (+), pleuritic chest pain (-) Cardiovascular; chest pain (-), peripheral edema (-), paroxysmal nocturnal dyspnea (-), orthopnea (-) Gastrointestinal; nausea (-), vomiting (-), abdominal pain (-), diarrhea (-), constipation (-), melena (-), hematochezia (-) Urinary; urinary frequency (-), dysuria (-), urgency (-), flank pain (-), gross hematuria (-) Skin; rash (-), 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 General: acutely ill looking, in mild respiratory distress,. HEENT: Normocephalic, atraumatic,. Neck: Supple, without JVD or goiter or thyroid mass. Respiratory: Decreased breath sound bilaterally, mild end expiratory wheezing bilaterally. Card iovascular: Regular rate and rhythm, S1, S2 normal, no murmur no gallop. Gastrointestinal: Normal bowel sounds, nondistended, nontender, No ascites, , No masses, no hepatosplenomegaly. Musculoskeletal: No clubbing, No peripheral edema. Integumentary: No rashes. Lymphatics: No axilla or cervical lymphadenopathy. Neurology; alert awake oriented x3, no focal neurologic deficit Assessment And Plan - Plan This is 48 years old female patient, ex-smoker [id number] with past medical history notable for COPD with frequent exacerbation requiring hospitalization, hypertension, noncompliant with medication and follow-up who presented to emergency room for 3 days of worsening dyspnea and admitted on general medical floor. #1 mild acute hypoxic respiratory failure secondary to #2, resolved #2 acute exacerbation of COPD no pneumonia or pneumothorax on chest x-ray on admission, negative influenza A and B and COVID-19 #3 uncontrolled hypertension She has a less cough, her blood pressure is improving, good saturation 94% on room air however she is very symptomatic with productive cough and dyspnea on minimal exertion, I will taper methylprednisolone to 40 mg every 12 hours Will continue scheduled DuoNeb, antitussive with scheduled Tessalon and codeine cough syrup as needed, levofloxacin 500 mg once a day, continue on clonidine, me toprolol, hydralazine, spironolactone , IV hydralazine as needed for severe hypertension.
[2024-01-14] MEDS: METHYLPREDNISOLONE 40 MG INJ IV SCH (20:36)
[2024-01-14] MEDS: ZOLPIDEM TARTRATE 5 MG TABLET PO PRN (20:43)
--- NOTE | 2024-01-15 10:59 | P.DS ---
Admission Date: 01/12/24 Discharge Date: 01/15/24 Disposition: ROUTINE DISCHARGE Discharge Condition: GOOD Reason for Admission: Dyspnea Brief History of Present Illness: This is 48 years old female patient with past medical history notable for COPD, hypertension, noncompliant with medication and follow-up who presented to emergency room for evaluation of dyspnea for the past 3 days. She did describe dyspnea severe, continuous, steady worsening, associated with nonproductive cough, aggravated by lying flat, not relieved by [id number] cough medicine. The last time he was admitted for acute exacerbation of COPD was 1 year ago. She states that she does not take any medicine on a regular basis at home. At this time she got flared up because everybody was sick with a cold at work. Hospital Course: Her chest x-ray showed no pneumothorax or pneumonia but hyperinflated lung. She tested negative for influenza A and B, negative for SARS-CoV-2. Her saturation by pulse oximetry 93% on room air, dropped to 89% on room air on coughing, improved to 95% on 2 L nasal cannula. She was treated with IV methylprednisolone, scheduled DuoNeb, empiric antibiotics with 500 mg levofloxacin, antitussive, we resumed her hypertensive regimen including clonidine, metoprolol, hydralazine, spironolactone. Patient gradually improved and able to wean off oxygen, her saturation was 94% on room air at the time of discharge, her blood pressure was slowly improved as well. She is being discharged home with new prescription of all her medication and 4mg Medrol pack as well as 3 more days of cefuroxime 500 mg twice daily. She needs to follow-up with her PCP after discharge #1 mild acute hypoxic respiratory failure secondary to #2, resolved #2 acute exacerbation of COPD, resolving #3 uncontrolled hypertension, improving Vital Signs/Physical Exam: Temp Pulse Resp BP Pulse Ox 98.6 F 46 L 12 175/84 H 93 01/15/24 08:00 01/15/24 08:00 01/15/24 08:00 01/15/24 08:00 01/15/24 08:00 Other Physical/Emotional Findings: - Physical Exam. General: acutely ill looking, in mild respiratory distress,. HEENT: Normocephalic, atraumatic,. Neck: Supple, without JVD or goiter or thyroid mass. Respiratory: Decreased breath sound bilaterally, mild end expiratory wheezing bilaterally, much less than admission. Cardiovascular: Regular rate and rhythm, S1, S2 normal, no murmur no gallop. Gastrointestinal: Normal bowel sounds, nondistended, nontender, No ascites, , No masses, no hepatosplenomegaly. Musculoskeletal: No clubbing, No peripheral edema. Integumentary: No rashes. Lymphatics: No axilla or cervical lymphadenopathy. Neurology; alert awake oriented x3, no focal neurologic deficit Laboratory Data at Discharge: WBC 7.90 thou/uL (4.3-10.9) 01/12/24 15:45 Hgb 15.7 g/dL (12.0-15.0) H 01/12/24 15:45 Hct 46.4 % (36.0-45.0) H 01/12/24 15:45 Plt Count 173 thou/uL (152-406) 01/12/24 15:45 PT 11.8 SECONDS (9.4-12.5) 01/12/24 15:45 INR 1.06 01/12/24 15:45 Sodium 138 mEq/L (136-145) 01/14/24 06:57 Potassium 4.0 mEq/L (3.5-5.1) D 01/14/24 06:57 BUN 26 mg/dL (7-18) H 01/14/24 06:57 Creatinine 0.90 mg/dL (0.55-1.02) 01/14/24 06:57 Glucose 145 mg/dL (74-106) H 01/14/24 06:57 Phosphorus 2.9 mg/dL (2.5-4.9) 01/14/24 06:57 Magnesium 2.2 mg/dL (1.6-2.4) 01/13/24 04:34 Total Bilirubin 0.5 mg/dL (0.2-1.0) 01/12/24 15:45 AST 69 U/L (15-37) H 01/12/24 15:45 ALT 68 U/L (13-56) H 01/12/24 15:45 Alkaline Phosphatase 85 U/L (45-117) 01/12/24 15:45 Home Medications: Folic Acid 1 mg PO DAILY 05/28/22 Albuterol Inhaler [Ventolin Inhaler*] 2 puff IH Q6H PRN #1 01/15/24 Albuterol Neb [Proventil 0.083% Neb Soln] 2.5 mg NEB [id number] amp 01/15/24 Benzonatate [Tessalon Perle*] 100 mg PO TID cap 01/15/24 Benzonatate [Tessalon Perle*] 100 mg PO TID PRN #30 cap 01/15/24 Clonidine HCl [Catapres*] 0.1 mg PO TID #15 01/15/24 Escitalopram Oxalate [Lexapro] 10 mg PO DAILY #30 01/15/24 Escitalopram [Lexapro*] 10 mg PO DAILY tab 01/15/24 Guaifen W/Codeine Syrup [ROBITUSSIN A-C Syrup*] 5 ml PO QID PRN #150 ml 01/15/24 Hydralazine [Apresoline*] 25 mg PO TID #30 tab 01/15/24 Methylprednisolone [Medrol dosepack] 4 mg PO DIRECTED #1 ayan 01/15/24 Metoprolol Tartrate [Lopressor*] 25 mg PO BID #30 tab 01/15/24 Metoprolol Tartrate [Lopressor*] 25 mg PO BID 6AM 6PM tab 01/15/24 Mometasone/Formoterol [Dulera 200 Mcg-5 Mcg Inhaler] 13 gm IH BID #1 01/15/24 Spironolactone 50 mg PO DAILY #30 01/15/24 Spironolactone [Aldactone*] 50 mg PO DAILY tab 01/15/24 cefuroxime axetiL [Cefuroxime] 500 mg PO BID 3 Days #6 01/15/24 cloNIDine HCL [Catapres*] 0.1 mg PO TID tab 01/15/24 New Medications: Hydralazine [Apresoline*] 25 mg PO TID #30 tab Clonidine HCl [Catapres*] 0.1 mg PO TID #15 cefuroxime axetiL [Cefuroxime] 500 mg PO BID 3 Days #6 Mometasone/Formoterol [Dulera 200 Mcg-5 Mcg Inhaler] 13 gm IH BID #1 Escitalopram Oxalate [Lexapro] 10 mg PO DAILY #30 Metoprolol Tartrate [Lopressor*] 25 mg PO BID #30 tab Methylprednisolone [Medrol dosepack] 4 mg PO DIRECTED #1 ayan Guaifen W/Codeine Syrup [ROBITUSSIN A-C Syrup*] 5 ml PO QID PRN #150 ml PRN Reason: Cough Spironolactone 50 mg PO DAILY #30 Benzonatate [Tessalon Perle*] 100 mg PO TID PRN #30 cap PRN Reason: Cough Albuterol Inhaler [Ventolin Inhaler*] 2 puff IH Q6H PRN #1 PRN Reason: Shortness Of Breath Physician Discharge Instructions: Follow up with an Internal Medicine Physician of your choice: LUIGI GODFREY MD [address], [address] [place] [address] ACCEPTING NEW PATIENTS! KANE MILES MD [address], [place] [address] KATELIN AGUILERA MD [address] [place] [address] CARLINE ANAYA MD [address] [facility] [place] [address] LALITA SLATER MD [address] [place] [address] Follow up with a Family Medicine Physician of your choice: KETTY ROWE MD [address], [address] [place] [address] ACCEPTING NEW PATIENTS! LUIGI GODFREY MD [address], [address] [place] [address] ACCEPTING NEW PATIENTS! DANIEL WALDEN DO [address] [address] JANE JUDD MD [address], [address] [place] [address] CAROLINA MONTANA MD [address], [address] [place] [address] KATIE FRIEND MD [address], [place] [address] [place] [address] CASSIE AGUILERA MD [address] [place] [address] SAMANTHA TORRE, [facility] [address], [address] [place] [address] GONZALO RAMÍREZ MD [address] [place] [address] LUCY RAMÍERZ APRN [facility] [address], [address] [place] [address] ELIOT MEHTA DO [address], [address] [place] [address] Diet: AHA Activity: Ad he Followup: NONE,NONE [Primary Care Provider] -
[2024-01-15 11:34] VITALS: O2SAT 94
[2024-01-15 12:43] VITALS: BP 146/67; TEMP 98.2
[2024-01-16] MEDS ORDERED: METHYLPREDNISOLONE 40 MG INJ IV SCH (09:00)
--- NOTE | 2024-01-16 12:07 | EKG ---
Test Date: 2024-01-12 Test Time: 16:13:49 Paperboard Boxes Estimator: ROWENA MEASUREMENT RESULTS: Intervals: Rate: 72 MS: 120 QRSD: 84 QT: 414 QTc: 453 [place]: P: 76 MS: 120 QRS: 82 T: 77 INTERPRETIVE STATEMENTS: Normal sinus rhythm Left ventricular hypertrophy with repolarization abnormality Abnormal ECG Compared to ECG 05/28/2022 11:50:38 Left ventricular hypertrophy now present Early repolarization now present Sinus bradycardia no longer present Electronically Signed On 01-16-24 12:03:08 LEARNING OFFICER by Sin Barker
== END 2024-01-15 13:15 | disposition home or self-care (01) | DRG 190 ==
LOC: ER 14:55 → ERHOLD 17:44 → 2ND 22:57
PROVIDERS: ADMIT Internal Medicine; ATTEND Internal Medicine
DX: J44.1 Chronic obstructive pulmonary disease with (acute) exacerbation (principal); J96.01 Acute respiratory failure with hypoxia; I10 Essential (primary) hypertension; E78.00 Pure hypercholesterolemia, unspecified; F17.210 Nicotine dependence, cigarettes, uncomplicated; Z71.6 Tobacco abuse counseling; Z11.52 Encounter for screening for COVID-19; Z91.040 Latex allergy status; Z90.710 Acquired absence of both cervix and uterus; Z79.899 Other long term (current) drug therapy; Z85.828 Personal history of other malignant neoplasm of skin; Z91.148 Patient's other noncompliance with medication regimen for other reason
CPT/HCPCS: 36415; 71045; 80048; 80076; 83735; 83880; 84100; 84484; 85025; 85610; 87040; 87804; 87811; 93005; 94640; 94760; 96365; 96368; 96375; 99285; J0360; J1650; J2919; J3475; J7613; J7614; J7644

== ENCOUNTER 2024-01-17 10:16 | Inpatient (IN) | payer BC ==
--- OUTSIDE RECORDS SUMMARY | 2024-01-17 10:18 | XMS REPORT | Continuity of Care Document ---
Author Name Unknown Address [address] [place] [address] [facility] thconnect Address [address] [place] [address] Care Team Providers Care Patent Prosecution Attorney Name Role Phone NICO GORMAN Attending Clinician [...] s DA Active U 03-09 00:00: 00 [facility] Social History Smoking Status Start Date Stop Date Source Light Tobacco Smoker [facility] Medications Ordered Medication Name Filled [...] route in the morning, for blood pressure. [facility] losartan 25 mg tablet Take 1 tablet every day by oral route in the evening, for blood pressure. losartan 25 mg tablet Take 1 tablet every day by oral route in the evening, for blood pressure. No 1 Q1D losartan 25 mg tablet Take 1 tablet every day by oral route in the evening, for blood pressure. [facility] ondansetron 8 mg disintegrat [...] al route as needed, for nausea/vom iting. [facility] Vital Signs Vital Name Observation Time Observation Value Comments S ource BP Diastolic 2023-08-24 00:00:00 116 mm[Hg] Mahendra agorda [facility] BP Systolic 2023-08-24 00:00:00 197 mm[Hg] Arjun andreas [facility] Height 2023-08-24 00:00:00 64 [in_i] Conrado orda [facility] Body Weight 2023-08-24 00:00:00 3 [oz_av] Pelon britt [facility] BMI (Body Mass Index) 2023-08-24 00:00:00 22 kg/m2 Alon[facility] Body Weight 2023-08-09 00:00:00 2038 [oz_av] Pelon seymourorda [facility] BP Diastolic 2023-08-09 00:00:00 121 mm[Hg] Mahendra smitha [facility] Height 2023-08-09 00:00:00 64 [in_i] Conrado koch [facility] BP Systolic 2023-08-09 00:00:00 231 mm[Hg] Arjun gibbsa [facility] BMI (Body Mass Index) 2023-08-09 00:00:00 21.9 kg/m2 [facility] Encounters Start Date/Time End Date/Time Encounter Type Admission Type Attending Clinicians Care Facility Care Department Encounter ID Source 2023-08-24 00:00:00 2023-08-24 00:00:00 Melissa Chávez, HAND PICKER: [place] [address] , Ph. [facility] [phone] [id number] [facility] 2023-08-09 00:00:00 2023-08-09 00:00:00 Melissa Chávez, HAND PICKER: [address] [place] [address] , Ph. [facility] [place] [facility] [phone] [id number] [facility] 2023-07-14 12:36:00 2023-07-14 14:27:00 Emergency ER NICO GORMAN [facility] [id number] [facility] 2022-12-19 00:00:00 2022-12-19 00:00:00 Outpatient [id number] PRIV [facility] [id number] [facility] 2022-03-11 11:50:00 2022-03-11 11:50:00 Outpatient Sariah Foster [facility] [id number] 36 [facility] 2022-02-16 17:23:00 2022-02-16 17:23:00 Outpatient LUCIA LISA CHAVEZ [facility] [id number] [facility] 2021-09-17 00:00:00 2021-09-17 00:00:00 Outpatient JACQUE MOYA [facility] [id number] [facility] Results Test Description Test Time Test Comments Results Result Co mments Source UR HCG [id number] 11:08:00* Test Item Value Reference Range Interpretation Comme nts UR HCG QUAL (test code = HCGQLU) NEGATIVE NEGATIVE Notes Date/Time Note Provider Source 2022-03-11 17:47:00 [facility] ([facility]) Brief Op Note REPORT#:[id number] REPORT STATUS: Signed DATE:03/11/22 TIME:174 PATIENT: FAWN JONES UNIT #: [id number] ROOM/BED: : 73 AGE: 46 SEX: F [...] small and large bowel Primary Surgeon: miguel [employer] Sales Consultant(s): maxim smith Anesthesia: general anesthesia Findings: small [...] Needle count: correct at 1755 RPT #: [id number] END OF REPORT [facility]
[2024-01-17] MEDS ORDERED: ALBUTEROL 2.5 MG/3 ML NEB SOL ONE (10:40)
[2024-01-17] MEDS ORDERED: IPRATROPIUM BROM 0.5MG/2.5ML ONE (10:41)
[2024-01-17] MEDS ORDERED: METHYLPREDNISOLONE 125 MG INJ ONE (10:41)
[2024-01-17 11:07] LABS: Absolute Monocytes 1.3 K/uL (0.1-1.3); Absolute Neutrophil 15.3 K/uL (1.8-8.0); Basophils % 0.1 % (0-1.3); Eosinophils % 0.2 % (0-4.4); Hematocrit 50.6 % (36.0-45.0); Hemoglobin 16.7 g/dL (12.0-15.0); Lymphocytes % 10.6 % (15.3-44.8); MCH 30.1 pg (27.0-35.0); MCHC 33.1 g/dL (32.0-36.0); MCV 91.1 fL (80-100); MPV 9.4 fL (7.6-11.3); Neutrophils % 82.1 % (41.7-73.7); Platelets 342 thou/uL (152-406); RBC Red Blood Cell Count 5.55 M/uL (3.86-4.86); Red Cell Distribution Width 12.8 % (12.1-15.2)
[2024-01-17 11:11] LABS: PT Prothrombin Time 11.4 SECONDS (9.4-12.5); PTT, Activated Partial Thromb 32.8 SECONDS (24.3-36.9); Protime INR 1.02
--- NOTE | 2024-01-17 11:13 | RAD REPORT ---
EXAMINATION: ONE VIEW CHEST XR CLINICAL INDICATION: COPD;Dyspnea TECHNIQUE: Frontal chest projection is submitted. Examination is limited by patient positioning and t echnique. COMPARISON: 01/12/2024 FINDINGS: The lungs are well inflated and clear. The heart is normal in size. No displaced fractures identified . IMPRESSION: No acute intrathoracic abnormalities.
[2024-01-17 11:21] LABS: Albumin 3.8 g/dL (3.4-5.0); Albumin/Globulin Ratio 0.9 (1.1-1.8); Anion Gap 9.9 mEq/L (5.0-15.0); Bilirubin Total 0.5 mg/dL (0.2-1.0); Globulin 4.4 g/dL (2.3-3.5); Potassium 3.9 mEq/L (3.5-5.1); Protein, Total 8.2 g/dL (6.4-8.2)
--- NOTE | 2024-01-17 14:08 | ER ---
Nurse's Notes [facility] Name: Allyson Soler Age: 48 yrs Sex: Female : 1975 Arrival Date: 01/17/2024 Time: 10:16 Bed 3 Private MD: Diagnosis: COPD/ Chronic obstructive pulmonary disease with (acute) exacerbation Presentation: 01/16 10:21 Chief complaint: Patient states: difficulty breathing , diarrhea , nausea , was iw discharged from hospital on Tuesday , was admitted for emphysema. Coronavirus screen: Client presents with at least one sign or symptom that may indicate coronavirus-19. Ebola Screen: No symptoms or risks identified at this time. Initial Sepsis Screen: Does the patient meet any 2 criteria? RR > 20 per min. Does the patient have a suspected source of infection? No. Patient's initial sepsis screen is negative. Risk Assessment: Do you want to hurt yourself or someone else?. Onset of symptoms was January 15, 2024. 10:21 Method Of Arrival: Wheelchair iw 10:21 Acuity: HUMBERTO 3 iw Historical: - Allergies: 10:23 Latex; iw - PMHx: 10:23 Hypercholesterolemia; Hypertensive disorder; iw - PSHx: 10:23 Melanoma removed (ec); hysterectomy; iw - Immunization history:: Adult Immunizations not up to date. - Infectious Disease History:: Denies. - Social history:: Smoking status: Patient reports the use of cigarette tobacco products, smokes one pack cigarettes per day. stopped last Tuesday . - Family history:: not pertinent. - Hospitalizations: : The patient was recently seen at [facility]. Screenin:00 [facility] ED Fall Risk Assessment (Adult) History of falling in the last 3 months, kc6 including since admission No falls in past 3 months (0 pts) Confusion or Disorientation No (0 pts) Intoxicated or Sedated No (0 pts) Impaired Gait No (0 pts) Mobility Assist Device Used No (0 pt) Altered Elimination No (0 pt) Score/Fall Risk Level 0 - 2 = Low Risk Oriented to surroundings, Maintained a safe environment. Abuse screen: Denies threats or abuse. Denies injuries from another. Nutritional screening: No deficits noted. Tuberculosis screening: No symptoms or risk factors identified. Assessment: 10:45 General: Appears in no apparent distress. uncomfortable, well groomed, well developed, kc6 Behavior is calm, cooperative, appropriate for age. Pain: Denies pain. Neuro: Level of Consciousness is awake, alert, obeys commands, Oriented to person, place, time, situation, Appropriate for age. Cardiovascular: Reports shortness of breath, Denies chest pain, Capillary refill < 3 seconds Rhythm is sinus bradycardia. Respiratory: Reports shortness of breath at rest on exertion cough that is dry, persistent Airway is patent Trachea midline Respiratory effort is even, labored, Respiratory pattern is symmetrical, tachypnea Breath sounds with wheezes bilaterally. GI: Reports nausea, Patient currently denies abdominal pain, diarrhea, vomiting. : No signs and/or symptoms were reported regarding the genitourinary system. EENT: No signs and/or symptoms were reported regarding the EENT system. Derm: No signs and/or symptoms reported regarding the dermatologic system. Skin is intact, is healthy with good turgor, Skin is dry, Skin is normal, Skin temperature is warm. Musculoskeletal: No signs and/or symptoms reported regarding the musculoskeletal system. Circulation, motion, and sensation intact. Capillary refill < 3 seconds, Range of motion: intact in all extremities. 11:45 Reassessment: Patient appears in no apparent distress at this time. No changes from kc6 previously documented assessment. Patient and/or family updated on plan of care and expected duration. Pain level reassessed. Patient is alert, oriented x 3, equal unlabored respirations, skin warm/dry/pink. 12:45 Reassessment: Patient appears in no apparent distress at this time. No changes from kc6 previously documented assessment. Patient and/or family updated on plan of care and expected duration. Pain level reassessed. Patient is alert, oriented x 3, equal unlabored respirations, skin warm/dry/pink. 13:56 Reassessment: Patient appears in no apparent distress at this time. No changes from kc6 previously documented assessment. Patient and/or family updated on plan of care and expected duration. Pain level reassessed. Patient is alert, oriented x 3, equal unlabored respirations, skin warm/dry/pink. 14:25 Reassessment: Patient appears in no apparent distress at this time. No changes from kc6 previously documented assessment. Patient and/or family updated on plan of care and expected duration. Pain level reassessed. Patient is alert, oriented x 3, equal unlabored respirations, skin warm/dry/pink. 15:30 Reassessment: Patient appears in no apparent distress at this time. No changes from kc6 previously documented assessment. Patient and/or family updated on plan of care and expected duration. Pain level reassessed. Patient is alert, oriented x 3, equal unlabored respirations, skin warm/dry/pink. 18:01 Reassessment: Patient appears in no apparent distress at this time. No changes from kc6 previously documented assessment. Patient and/or family updated on plan of care and expected duration. Pain level reassessed. Patient is alert, oriented x 3, equal unlabored respirations, skin warm/dry/pink. Vital Signs: 10:21 BP 161 / 106; Pulse 74; Resp 26 S; Pulse Ox 94% on R/A; Weight 55.79 kg; Height 5 ft. 4 iw in. ; Pain 0/10; 11:23 BP 166 / 82; Pulse 59; Resp 20 S; Pulse Ox 95% on R/A; kc6 12:10 BP 146 / 99; Pulse 60; Resp 20; Pulse Ox 92% on R/A; ap3 13:55 BP 150 / 91; Pulse 58; Resp 18 S; Pulse Ox 94% on R/A; kc6 14:25 BP 158 / 83; Pulse 56; Resp 18 S; Pulse Ox 95% on 3 lpm NC; kc6 15:30 BP 160 / 97; Pulse 59; Resp 18 S; Pulse Ox 95% on 3 lpm NC; kc6 18:01 BP 168 / 90; Pulse 55; Resp 17 S; Pulse Ox 98% on 3 lpm NC; kc6 10:21 Body Mass Index 21.11 (55.79 kg, 162.56 cm) iw 10:21 Pain Scale: Adult iw ED Course: 10:19 Patient arrived in ED. ra3 10:23 Sam Pina MD is Attending Physician. rn 10:23 Triage completed. iw 10:24 Arm band placed on. iw 10:32 Dolores Solis, BRIAN is Primary Nurse. kc6 10:59 Inserted saline lock: 20 gauge in right forearm, using aseptic technique. Blood kc6 collected. Flushed with 10 mL NS. 11:00 Patient has correct armband on for positive identification. Placed in gown. Bed in low kc6 position. Call light in reach. Side rails up X 1. Adult w/ patient. monitor technician on. Pulse ox on. NIBP on. Door closed. Noise minimized. Lights dimmed. Pillow given. 11:04 Chest Single View XRAY In Process Unspecified. EDMS 14:08 Pepito Torres is Hospitalizing Provider. rn 18:02 No provider procedures requiring assistance completed. Patient admitted, IV remains in kc6 place. Administered Medications: 10:45 Drug: DuoNeb Nebulize (3:1) (2.5 mg - 0.5 mg) 3 ml Nebulizer once Route: Nebulizer; ap3 11:36 Follow up: Response: No adverse reaction kc6 10:55 Drug: MethylPrednisoLONE IVP 125 mg IVP once Route: IVP; Site: right forearm; kc6 11:36 Follow up: Response: No adverse reaction kc6 14:25 Drug: Zithromax IVPB 500 mg IVPB once over 1 hrs; mix in 250 mL NS Route: IVPB; Infused kc6 Over: 1 hrs; Site: right forearm; 15:30 Follow up: Response: No adverse reaction; IV Status: Completed infusion; IV Intake: kc6 250ml Medication: 18:02 VIS not applicable for this client. kc6 Intake: 15:30 IV: 250ml; Total: 250ml. kc6 Outcome: 14:08 Decision to Hospitalize by Provider. rn 18:02 Admitted to Med/surg accompanied by tech, via wheelchair, room 220, with oxygen, with kc6 chart, 18:02 Condition: good 18:02 Instructed on the need for admit, 18:02 Patient left the ED. kc6 Signatures: Dispatcher [employer] EDDC Rosenda Galindo, RN Sam Mike MD MD rn Prokisch, Amanda, RN RN ap3 Campbell, Kaitlyn, RN RN kc6 Nancy Yanez ra3
--- NOTE | 2024-01-17 14:09 | EDPHYS ---
Physician Documentation [facility] Name: Allyson Soler Age: 48 yrs Sex: Female : 1975 Arrival Date: 01/17/2024 Time: 10:16 Bed 3 Private MD: ED Physician Sam Pina HPI: 01/16 11:07 This 48 yrs old Female presents to ER via Wheelchair with complaints of Breathing rn Difficulty. 11:07 The patient has shortness of breath at rest. Onset: The symptoms/episode began/occurred rn 2 day(s) ago. Duration: The symptoms are continuous. The patient's shortness of breath is aggravated by exertion. Severity of symptoms: At their worst the symptoms were moderate in the emergency department the symptoms are unchanged. The patient has experienced similar episodes in the past. Patient reports recent admission for COPD, felt a little better at discharge but then worse again 2 days ago. Reports chills, cough, shortness of breath. No chest pain. No hemoptysis. No history of DVT or PE. No trauma. Started taking steroids prescribed yesterday but did not fill antibiotics.. Historical: - Allergies: 10:23 Latex; iw - PMHx: 10:23 Hypercholesterolemia; Hypertensive disorder; iw - PSHx: 10:23 Melanoma removed (ec); hysterectomy; iw - Immunization history:: Adult Immunizations not up to date. - Infectious Disease History:: Denies. - Social history:: Smoking status: Patient reports the use of cigarette tobacco products, smokes one pack cigarettes per day. stopped last Tuesday . - Family history:: not pertinent. - Hospitalizations: : The patient was recently seen at [facility]. ROS: 11:07 Constitutional: Positive for chills Cardiovascular: Negative for chest pain, rn palpitations, and edema, Respiratory: Positive for cough and shortness of breath Abdomen/GI: Negative for abdominal pain, nausea, vomiting, diarrhea, and constipation, MS/Extremity: Negative for injury and deformity, Skin: Negative for injury, rash, and discoloration, Neuro: Negative for headache, weakness, numbness, tingling, and seizure, Exam: 11:07 Constitutional: This is a well developed, well nourished patient who is awake, alert, rn moderate tachypnea, sitting upright and appears uncomfortable in wheelchair Head/Face: Normocephalic, atraumatic. ENT: No stridor Cardiovascular: Regular rate and rhythm. No pulse deficits. Respiratory: Moderate tachypnea, no retractions, faint upper expiratory wheezing Abdomen/GI: Soft, non-tender 14:35 ECG was reviewed by the Attending Physician. rn Vital Signs: 10:21 BP 161 / 106; Pulse 74; Resp 26 S; Pulse Ox 94% on R/A; Weight 55.79 kg; Height 5 ft. 4 iw in. ; Pain 0/10; 11:23 BP 166 / 82; Pulse 59; Resp 20 S; Pulse Ox 95% on R/A; kc6 12:10 BP 146 / 99; Pulse 60; Resp 20; Pulse Ox 92% on R/A; ap3 13:55 BP 150 / 91; Pulse 58; Resp 18 S; Pulse Ox 94% on R/A; kc6 14:25 BP 158 / 83; Pulse 56; Resp 18 S; Pulse Ox 95% on 3 lpm NC; kc6 15:30 BP 160 / 97; Pulse 59; Resp 18 S; Pulse Ox 95% on 3 lpm NC; kc6 18:01 BP 168 / 90; Pulse 55; Resp 17 S; Pulse Ox 98% on 3 lpm NC; kc6 10:21 Body Mass Index 21.11 (55.79 kg, 162.56 cm) iw 10:21 Pain Scale: Adult iw MDM: 10:23 Medical Screening Exam initiated rn 14:05 Differential diagnosis: Anemia Chronic Obstructive Pulmonary Disease pneumonia, rn Pneumothorax pulmonary edema. 14:07 Data reviewed: vital signs, nurses notes, lab test result(s), radiologic studies, plain rn films, and as a result, I will admit patient. Counseling: I had a detailed discussion with the patient and/or guardian regarding the historical points, exam findings, and any diagnostic results supporting the discharge/admit diagnosis, lab results, radiology results, the need for further work-up and treatment in the hospital. Response to treatment: the patient's symptoms have mildly improved after treatment. Special discussion:. ED course: Patient still tachypneic, reports shortness of breath that has not resolved despite multiple breathing treatments and steroids. Chest x-ray is clear. Lactate normal. Will admit for COPD exacerbation. 14:09 ED course: I personally spent 35 minutes engaged in work directly related to the rn individual patient's care. This does not include any time spent performing procedures. The patient has been deemed critically ill because of COPD exacerbation requiring multiple nebulizer treatments as well as IV steroids and organization of admission to the hospital. 01/16 10:28 Order name: Blood Culture Adult (2) rn 01/16 10:28 Order name: CBC with Diff; Complete Time: 11:17 01/16 10:28 Order name: CMP; Complete Time: 12:12 rn 01/16 10:28 Order name: Lactate w/ 2H reflex if indic.; Complete Time: 12:12 rn 01/16 10:28 Order name: Protime (+inr); Complete Time: 11: rn 01/16 10:28 Order name: Ptt, Activated; Complete Time: 11: rn 01/16 10:58 Order name: Flu; Complete Time: 12:12 01/16 10:58 Order name: SARS-COV-2 Antigen Rapid rn 01/16 10:28 Order name: Chest Single View XRAY; Complete Time: 11: 01/16 10:28 Order name: Accucheck; Complete Time: 10:59 rn 01/16 10:28 Order name: Cardiac monitoring; Complete Time: 10:42 rn 01/16 10:28 Order name: EKG - Nurse/Tech; Complete Time: 10:42 rn 01/16 10:28 Order name: IV Saline Lock - Large Bore; Complete Time: 10:59 rn 01/16 10:28 Order name: Labs collected and sent; Complete Time: 10:59 01/16 10:28 Order name: O2 Per Protocol; Complete Time: 10:32 rn 01/16 10:28 Order name: O2 Sat Monitoring; Complete Time: 10:32 rn 01/16 10:28 Order name: Vital Signs; Complete Time: 10:32 rn EC:35 Rate is 49 beats/min. Rhythm is regular. QRS [place] is Normal. MN interval is shortened. rn QRS interval is normal. T waves are Normal. No ST changes noted. Clinical impression: Sinus bradycardia. Interpreted by me. Reviewed by me. Administered Medications: 10:45 Drug: DuoNeb Nebulize (3:1) (2.5 mg - 0.5 mg) 3 ml Nebulizer once Route: Nebulizer; ap3 11:36 Follow up: Response: No adverse reaction kc6 10:55 Drug: MethylPrednisoLONE IVP 125 mg IVP once Route: IVP; Site: right forearm; kc6 11:36 Follow up: Response: No adverse reaction kc6 14:25 Drug: Zithromax IVPB 500 mg IVPB once over 1 hrs; mix in 250 mL NS Route: IVPB; Infused kc6 Over: 1 hrs; Site: right forearm; 15:30 Follow up: Response: No adverse reaction; IV Status: Completed infusion; IV Intake: kc6 250ml Disposition: 14:09 Critical Care:. 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 Total time: 35 minutes rn Signatures: Dispatcher [employer] EDSheyla Mendez Irene RN Sam Mike MD MD rn Prokisch, Amanda, RN RN ap3 Dolores Solis RN RN kc6 Corrections: (The following items were deleted from the chart) 10:29 10:29 Chest Single View+[id number].[email or web address] ordered. EDMS EDMS 16:50 14:08 rn bd
[2024-01-17] MEDS ORDERED: NA CHLORIDE 0.9% 250 ML ONE (14:19)
[2024-01-17] MEDS ORDERED: AZITHROMYCIN 500 MG INJ IVPB ONE (14:19)
[2024-01-17 14:49] LABS: SARS-CoV-2 Antigen CONTROL BLUE LINE VIS/BG OK; SARS-CoV-2 Antigen Rapid Res Negative (Negative)
--- NOTE | 2024-01-17 15:07 | P.HP ---
Certification for Inpatient Patient admitted to: Observation With expected LOS: <2 Midnights Patient will require the following post-hospital care: None Practitioner: I am a practitioner with admitting privileges, knowledge of patient current condition, hospital course, and medical plan of care. Services: Services provided to patient in accordance with Admission requirements found in Title 42 Section 412.3 of the Code of Federal Regulations Patient History Date of Service: 01/17/24 Reason for admission: COPD exacerbation History of Present Illness: 48-year-old female with history of COPD, hypertension, tobacco use disorder, medication noncompliance presents to the emergency department for shortness of breath. She was recently in the hospital from 01/11 through 01/14 for COPD exacerbation. She was discharged and her medications were sent to the pharmacy but she did not pick them up before returning home and behave aggressively short of breath the following day after discharge. She states that she does not have any inhalers at home, albuterol, nebulizers or daily inhalers. Upon arrival patient was noted to have expiratory wheezing, coughing fits. Her labs were significant for leukocytosis with white blood cell count of 18.6 hemoglobin of 16.7 hematocrit of 50.6, she was afebrile, and no source of infection was identified. Chest x-ray was negative for acute findings. Patient still dyspneic after nebulizer treatments, steroids will need to be admitted under observation for suspected COPD exacerbation. Allergies latex Adverse Reaction (Verified 05/28/22 15:57) Rash Home Medications: Folic Acid 1 mg PO DAILY 05/28/22 Albuterol Inhaler [Ventolin Inhaler*] 2 puff IH Q6H PRN #1 01/15/24 Albuterol Neb [Proventil 0.083% Neb Soln] 2.5 mg NEB [id number] amp 01/15/24 Benzonatate [Tessalon Perle*] 100 mg PO TID cap 01/15/24 Benzonatate [Tessalon Perle*] 100 mg PO TID PRN #30 cap 01/15/24 Clonidine HCl [Catapres*] 0.1 mg PO TID #15 01/15/24 Escitalopram Oxalate [Lexapro] 10 mg PO DAILY #30 01/15/24 Escitalopram [Lexapro*] 10 mg PO DAILY tab 01/15/24 Guaifen W/Codeine Syrup [ROBITUSSIN A-C Syrup*] 5 ml PO QID PRN #150 ml 01/15/24 Guaifen W/Codeine Syrup [ROBITUSSIN A-C Syrup] 5 ml PO QID PRN #150 ml 01/15/24 Hydralazine [Apresoline*] 25 mg PO TID #30 tab 01/15/24 Methylprednisolone [Medrol dosepack] 4 mg PO DIRECTED #1 ayan 01/15/24 Metoprolol Tartrate [Lopressor*] 25 mg PO BID #30 tab 01/15/24 Metoprolol Tartrate [Lopressor*] 25 mg PO BID 6AM 6PM tab 01/15/24 Mometasone/Formoterol [Dulera 200 Mcg-5 Mcg Inhaler] 13 gm IH BID #1 01/15/24 Spironolactone 50 mg PO DAILY #30 01/15/24 Spironolactone [Aldactone*] 50 mg PO DAILY tab 01/15/24 cefuroxime axetiL [Cefuroxime] 500 mg PO BID 3 Days #6 01/15/24 cloNIDine HCL [Catapres*] 0.1 mg PO TID tab 01/15/24 - Past Medical/Surgical History -: birthmark mole turned cancer at age 8. -: HTN (Dr Rodriguez) -: COPD -: Skin cancer removal leg -: hysterectomy 03/11/22 for potential CA. 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 - Family History Mother -: Heart disease Notes: pacemaker - Social History Smoking Status: Former smoker Alcohol use: Yes CD- Drugs: No Caffeine use: Yes Place of Residence: Home Review of Systems 10-point ROS is otherwise unremarkable Respiratory: Cough, Shortness of Breath Physical Examination - Physical Exam General: Alert, In no apparent distress, Oriented x3 HEENT: Atraumatic, PERRLA, EOMI, Sclerae nonicteric Neck: Supple, 2+ carotid pulse no bruit, No LAD Respiratory: Diminished, Expiratory wheezes Cardiovascular: Regular rate/rhythm, Normal S1 S2 Gastrointestinal: Normal bowel sounds, No tenderness Musculoskeletal: No tenderness Integumentary: No rashes Neurological: Normal gait, Normal speech, Normal strength at 5/5 x4 extr, Normal tone, Normal affect Lymphatics: No axilla or inguinal lymphadenopathy - Studies Laboratory Data (last 24 hrs) 01/17/24 01/17/24 01/17/24 10:55 10:55 10:55 WBC 18.60 H Hgb 16.7 H Hct 50.6 H Plt Count 342 PT 11.4 INR 1.02 APTT 32.8 Sodium 137 Potassium 3.9 BUN 29 H Creatinine 1.05 H Glucose 120 H Total Bilirubin 0.5 AST 31 ALT 153 H Alkaline Phosphatase 107 Microbiology Data (last 24 hrs): 01/17/24 11:03 Nasopharnyx Influenza Type A Antigen Screen - Final 01/17/24 11:03 Nasopharnyx Influenza Type B Antigen Screen - Final Assessment and Plan - Plan Assessment: COPD exacerbation-medical noncompliance Leukocytosis Hypertension Tobacco use disorder Plan: COPD exacerbation-medical noncompliance Leukocytosis 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 after discharge Does not have any inhalers/albuterol at home Suspect leukocytosis secondary to corticosteroid use Afebrile, monitor CBC/will treat fevers Continue prednisone, as needed nebulizer treatments, Dulera Pulmonology consult Hypertension Recent regimen resumed Tobacco use disorder Reports she has not been smoking recently, counseled on importance of cessation DVT PPX: Lovenox Code status: Full Discharge Plan: Home Plan to discharge in: 24 Hours - Advance Directives Does patient have a Living Will: No Does patient have a Durable POA for Healthcare: No - Code Status/Comfort Care Code Status Assessed: Yes (Full code) Critical Care: No Time Spent Managing Pts Care (In Minutes): 51
[2024-01-17] MEDS ORDERED: GUAIFENESIN/CODEINE 5ML UCUP PO PRN (16:27)
[2024-01-17] MEDS ORDERED: ALBUTEROL 2.5 MG/3 ML NEB SOL NEB PRN (16:27)
[2024-01-17] MEDS: ENOXAPARIN 40 MG/0.4 ML SQ SCH (17:00)
[2024-01-17] MEDS: METOPROLOL TAR 25 MG TAB PO SCH (18:00)
[2024-01-17] MEDS: IPRATROPIUM BROM 0.5MG/2.5ML NEB SCH (19:59)
[2024-01-17] MEDS: DULERA 200/5 (MOMETASONE/FORMOTEROL) INHALER IH SCH (21:00)
[2024-01-17 21:16] VITALS: BMI 21.1
[2024-01-17] MEDS: HYDRALAZINE HCL 25 MG TABLET PO SCH (21:19)
[2024-01-17] MEDS: cloNIDine HCL 0.1 MG TAB PO SCH (21:19)
[2024-01-17] MEDS: predniSONE 20 MG TAB PO SCH (21:19)
[2024-01-18] MEDS: ACETAMINOPHEN 325 MG TABLET PO PRN (01:54)
[2024-01-18] MEDS: TRAZODONE 50 MG TABLET PO PRN (01:55)
[2024-01-18] MEDS: BENZONATATE 100 MG CAP PO PRN (01:55)
[2024-01-18 04:52] LABS: Absolute Lymphocytes (CBC) 1.3 K/uL (0.7-4.9); Absolute Monocytes 0.9 K/uL (0.1-1.3); Basophils % 0.5 % (0-1.3); Hematocrit 43.2 % (36.0-45.0); Hemoglobin 14.4 g/dL (12.0-15.0); MCH 30.3 pg (27.0-35.0); MCHC 33.3 g/dL (32.0-36.0); MPV 9.8 fL (7.6-11.3); Monocytes % 8.6 % (3.3-12.3); Neutrophils % 77.9 % (41.7-73.7); Platelets 281 thou/uL (152-406); RBC Red Blood Cell Count 4.75 M/uL (3.86-4.86); Red Cell Distribution Width 12.6 % (12.1-15.2)
[2024-01-18 04:59] LABS: Anion Gap 6.5 mEq/L (5.0-15.0); Potassium 4.5 mEq/L (3.5-5.1)
[2024-01-18] MEDS: SPIRONOLACTONE 25 MG TABLET PO SCH (09:22)
[2024-01-18] MEDS ORDERED: LORAZEPAM 1 MG TABLET PO PRN (10:42)
--- NOTE | 2024-01-18 11:36 | EKG ---
Test Date: 2024-01-17 Test Time: 10:36:29 Pulp Cooker: LILIANA MEASUREMENT RESULTS: Intervals: Rate: 49 ME: 94 QRSD: 90 QT: 398 QTc: 359 [place]: P: 67 ME: 94 QRS: 79 T: 80 INTERPRETIVE STATEMENTS: Marked sinus bradycardia with short ME ST abnormality, possible digitalis effect Abnormal ECG Compared to ECG 01/12/2024 16:13:49 Short ME interval now present ST (T wave) deviation now present Sinus rhythm no longer present Left ventricular hypertrophy no longer present Early repolarization no longer present Electronically Signed On 01-18-24 11:32:19 AUDIOLOGIST by Sin Barker
--- NOTE | 2024-01-18 13:20 | P.CNS ---
Date of Consult: 01/18/24 Chief Complaint: COPD exacerbation History of Present Illness: Patient is 48 years of age has been dyspneic for 2 weeks patient works at [employer] apparently she became short of breath and it appeared in the emergency room smokes 1 pack a day has a history of dyspnea on exertion history of COPD or coronary artery disease doing a bit better does not take any bronchodilators at home smoking 2 weeks ago Allergies latex Adverse Reaction (Verified 05/28/22 15:57) Rash Home Medications: Folic Acid 1 mg PO DAILY 05/28/22 Albuterol Inhaler [Ventolin Inhaler*] 2 puff IH Q6H PRN #1 01/15/24 Albuterol Neb [Proventil 0.083% Neb Soln] 2.5 mg NEB [id number] amp 01/15/24 Benzonatate [Tessalon Perle*] 100 mg PO TID cap 01/15/24 Benzonatate [Tessalon Perle*] 100 mg PO TID PRN #30 cap 01/15/24 Clonidine HCl [Catapres*] 0.1 mg PO TID #15 01/15/24 Escitalopram Oxalate [Lexapro] 10 mg PO DAILY #30 01/15/24 Escitalopram [Lexapro*] 10 mg PO DAILY tab 01/15/24 Guaifen W/Codeine Syrup [ROBITUSSIN A-C Syrup*] 5 ml PO QID PRN #150 ml 01/15/24 Guaifen W/Codeine Syrup [ROBITUSSIN A-C Syrup] 5 ml PO QID PRN #150 ml 01/15/24 Hydralazine [Apresoline*] 25 mg PO TID #30 tab 01/15/24 Methylprednisolone [Medrol dosepack] 4 mg PO DIRECTED #1 ayan 01/15/24 Metoprolol Tartrate [Lopressor*] 25 mg PO BID #30 tab 01/15/24 Metoprolol Tartrate [Lopressor*] 25 mg PO BID 6AM 6PM tab 01/15/24 Mometasone/Formoterol [Dulera 200 Mcg-5 Mcg Inhaler] 13 gm IH BID #1 01/15/24 Spironolactone 50 mg PO DAILY #30 01/15/24 Spironolactone [Aldactone*] 50 mg PO DAILY tab 01/15/24 cefuroxime axetiL [Cefuroxime] 500 mg PO BID 3 Days #6 01/15/24 cloNIDine HCL [Catapres*] 0.1 mg PO TID tab 01/15/24 - Past Medical/Surgical History Diabetic: No -: birthmark mole turned cancer at age 8. -: HTN (Dr Rodriguez) -: COPD -: Skin cancer removal leg -: hysterectomy 03/11/22 for potential CA. 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 - Family History Mother Medical History: Heart disease Notes: pacemaker - Social History Smoking Status: Current every day smoker Alcohol use: Yes CD- Drugs: No Caffeine use: Yes Place of Residence: Home Review of Systems 10-point ROS is otherwise unremarkable General: Weakness Respiratory: Cough, Shortness of Breath Physical Examination Temp Pulse Resp BP Pulse Ox 98.2 F 52 12 113/65 100 01/18/24 12:00 01/18/24 12:00 01/18/24 12:00 01/18/24 12:00 01/18/24 12:00 General: Alert, Oriented x3 HEENT: Atraumatic Neck: Supple Respiratory: Expiratory wheezes Cardiovascular: No edema, Regular rate/rhythm, Normal S1 S2 - Problems (1) COPD exacerbation Current Visit: No Status: Acute Plan: Patient is 48 years of age admitted with a new diagnosis of COPD and I suspect that she has an exacerbation heavy smoker chest x-ray is clear feeling better patient's white count was elevated labs all reviewed and should be able to be discharged tomorrow may need home oxygen continue with prednisone 20 mg twice a day for a week need a long-acting bronchodilator at home to follow-up with me in 2 weeks will need outpatient pulmonary function testing counseled about smoking cessation
--- NOTE | 2024-01-18 13:22 | P.PN ---
Date of Service: 01/18/24 Subjective: Proving, breathing better this morning Still on nasal cannula oxygen ROS: 10 point ROS as noted above, otherwise negative Physical exam GEN: Alert, oriented, NAD HEENT: Normal conjunctiva, sclera anicteric CV: Regular rate and rhythm, no edema Pulm: Nonlabored respirations on nasal cannula ABD: Soft, nontender, nondistended MSK: No joint tenderness Integumentary: No rashes Neuro: Normal speech, normal affect Vitals reviewed Assessment: COPD exacerbation-medical noncompliance Leukocytosis Hypertension Tobacco use disorder Plan: COPD exacerbation-medical noncompliance Leukocytosis 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 Plan of care discussed with Calvin Abdi. Respiratory status significantly improved. Patient is on 2 L oxygen by nasal cannula. Continue bronchodilators, oral steroid for COPD exacerbation. Pulmonary Dr. Weber is following. Smoking cessation advised. <klarissa watson - Last Filed: 01/19/24 16:58>
[2024-01-19 06:21] LABS: Absolute Lymphocytes (CBC) 1.3 K/uL (0.7-4.9); Absolute Monocytes 0.8 K/uL (0.1-1.3); Absolute Neutrophil 7.8 K/uL (1.8-8.0); Basophils % 0.5 % (0-1.3); Eosinophils % 0.1 % (0-4.4); Hematocrit 42.3 % (36.0-45.0); Hemoglobin 14.2 g/dL (12.0-15.0); MCH 30.6 pg (27.0-35.0); MCHC 33.6 g/dL (32.0-36.0); MPV 8.9 fL (7.6-11.3); Monocytes % 7.7 % (3.3-12.3); Neutrophils % 78.7 % (41.7-73.7); Nucleated Red Blood Cells % 0.2 % (0-0); Platelets 271 thou/uL (152-406); RBC Red Blood Cell Count 4.64 M/uL (3.86-4.86); Red Cell Distribution Width 12.7 % (12.1-15.2)
[2024-01-19 06:38] LABS: Anion Gap 7.7 mEq/L (5.0-15.0); Potassium 4.7 mEq/L (3.5-5.1)
--- NOTE | 2024-01-19 12:46 | P.PN ---
Date of Service: 01/19/24 Subjective: improving, breathing better this morning Weaned off 02 ~93% on RA ROS: 10 point ROS as noted above, otherwise negative Physical exam GEN: Alert, oriented, NAD HEENT: Normal conjunctiva, sclera anicteric CV: Regular rate and rhythm, no edema Pulm: Nonlabored respirations on room air ABD: Soft, nontender, nondistended MSK: No joint tenderness Integumentary: No rashes Neuro: Normal speech, normal affect Vitals reviewed Assessment: COPD exacerbation-medical noncompliance Leukocytosis-Resolved Hypertension Tobacco use disorder Plan: COPD exacerbation-medical noncompliance Leukocytosis-Resolved 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 Does not have any inhalers/albuterol at home Suspect leukocytosis secondary to corticosteroid use-improved Afebrile, monitor CBC/will treat fevers Continue prednisone, as needed nebulizer treatments, Dulera Pulmonology consult Meds sent to pharmacy but closed as today is Thanksgiving Anticipate AM DC tomorrow to allow 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
[2024-01-20] MEDS: HYDROCODONE/APAP 5/325 MG TAB PO PRN (04:11)
[2024-01-20 04:24] VITALS: O2SAT 95
[2024-01-20] MEDS: METOPROLOL TARTRATE 5 MG/5 ML INJ IV STA (04:39)
[2024-01-20 08:10] VITALS: BP 177/90; TEMP 97.1
--- NOTE | 2024-01-20 08:58 | P.DS ---
Admission Date: 01/18/24 Discharge Date: 01/20/24 Disposition: ROUTINE DISCHARGE Discharge Condition: GOOD Reason for Admission: COPD exacerbation Brief History of Present Illness: Diagnosis COPD exacerbation-medical noncompliance Leukocytosis-Resolved Hypertension Tobacco use disorder HPI 01/17/24 Allyson Soler is a 48-year-old female with history of COPD, hypertension, tobacco use disorder, medication noncompliance presents to the emergency department for shortness of breath. She was recently in the hospital from 01/11 through 01/14 for COPD exacerbation. She was discharged and her medications were sent to the pharmacy but she did not pick them up before returning home and behave aggressively short of breath the following day after discharge. She states that she does not have any inhalers at home, albuterol, nebulizers or daily inhalers. Upon arrival patient was noted to have expiratory wheezing, coughing fits. Her labs were significant for leukocytosis with white blood cell count of 18.6 hemoglobin of 16.7 hematocrit of 50.6, she was afebrile, and no source of infection was identified. Chest x-ray was negative for acute findings. Patient still dyspneic after nebulizer treatments, steroids will need to be admitted under observation for suspected COPD exacerbation. Hospital Course: Allyson Soler is a pleasant 48 year old female with a past medical history significant for COPD, hypertension, tobacco use disorder, medication noncompliance who was admitted to the [facility] on 01/17/2024 for shortness of breath 2/2 COPD exacerbation and medication noncompliance. Allyson presented to the ED with shortness of breath. She was recently in the hospital from 01/11 through 01/14 for COPD exacerbation. She reported not picking up her newly prescribed medications from discharge on 01/14. She presented with expiratory wheezing and coughing fits. Chest xray was negative for acute findings. This admission, she has tolerated IV steroids, nebulizer treatments, robitussin, and tessalon perle. Blood pressure medications were adjusted and tolerated. She is ambulating independently, on room air, and hemodynamically stable for discharge. On 01/20/2024, Allyson was seen on morning rounds and deemed medically stable for discharge. Allysno was discharged with instructions to schedule follow-up appointments with Dr. Lowery and PCP. Allyson was provided prescriptions for hydralazine, clonidine, Dulera, spironolactone, Tessalon Perle, and Ventolin. Physical exam GEN: Alert and oriented x3, NAD HEENT: Normal conjunctiva, sclera anicteric CV: RRR, S1 S2 present, no edema Pulm: Nonlabored respirations, symmetrical chest wall movement on room air ABD: Soft on palpation, ND/NT, normal active bowel sounds MSK: No joint tenderness, 2+ peripheral pulses Integumentary: No rashes Neuro: Normal speech, normal affect Vital Signs/Physical Exam: Temp Pulse Resp BP Pulse Ox 97.1 F 51 14 177/90 H 96 01/20/24 08:09 01/20/24 08:09 01/20/24 08:09 01/20/24 08:09 01/20/24 08:09 Laboratory Data at Discharge: WBC 9.90 thou/uL (4.3-10.9) 01/19/24 06:09 Hgb 14.2 g/dL (12.0-15.0) 01/19/24 06:09 Hct 42.3 % (36.0-45.0) 01/19/24 06:09 Plt Count 271 thou/uL (152-406) 01/19/24 06:09 PT 11.4 SECONDS (9.4-12.5) 01/17/24 10:55 INR 1.02 01/17/24 10:55 APTT 32.8 SECONDS (24.3-36.9) 01/17/24 10:55 Sodium 139 mEq/L (136-145) 01/19/24 06:09 Potassium 4.7 mEq/L (3.5-5.1) 01/19/24 06:09 BUN 33 mg/dL (7-18) H 01/19/24 06:09 Creatinine 0.83 mg/dL (0.55-1.02) 01/19/24 06:09 Glucose 131 mg/dL (74-106) H 01/19/24 06:09 Total Bilirubin 0.5 mg/dL (0.2-1.0) 01/17/24 10:55 AST 31 U/L (15-37) 01/17/24 10:55 ALT 153 U/L (13-56) H 01/17/24 10:55 Alkaline Phosphatase 107 U/L (45-117) 01/17/24 10:55 Home Medications: Albuterol Neb [Proventil 0.083% Neb Soln] 2.5 mg NEB [id number] amp 01/15/24 Escitalopram Oxalate [Lexapro] 10 mg PO DAILY #30 01/15/24 Albuterol Inhaler [Ventolin Inhaler*] 2 puff IH Q6H PRN #2 inh 01/19/24 Benzonatate [Tessalon Perle*] 100 mg PO TID PRN #30 cap 01/19/24 Hydralazine [Apresoline*] 25 mg PO TID #90 tab 01/19/24 Mometasone/Formoterol [Dulera 200 Mcg/5 Mcg Inhaler] 2 puff IH BID #1 inhaler 01/19/24 Spironolactone 50 mg PO DAILY #30 tab 01/19/24 cloNIDine HCL [Catapres*] 0.1 mg PO TID #90 tab 01/19/24 Guaifen W/Codeine Syrup [ROBITUSSIN A-C Syrup] 5 ml PO QID PRN 01/20/24 Methylprednisolone [Medrol dosepack] 4 mg PO DIRECTED 01/20/24 Metoprolol Tartrate 25 mg PO BID 01/20/24 Mometasone/Formoterol [Dulera 200 Mcg/5 Mcg Inhaler] 13 g IH BID 01/20/24 cefuroxime axetiL [Cefuroxime] 500 mg PO BID 01/20/24 New Medications: Hydralazine [Apresoline*] 25 mg PO TID #90 tab cloNIDine HCL [Catapres*] 0.1 mg PO TID #90 tab Mometasone/Formoterol [Dulera 200 Mcg/5 Mcg Inhaler] 2 puff IH BID #1 inhaler Spironolactone 50 mg PO DAILY #30 tab Benzonatate [Tessalon Perle*] 100 mg PO TID PRN #30 cap PRN Reason: Cough Albuterol Inhaler [Ventolin Inhaler*] 2 puff IH Q6H PRN #2 inh PRN Reason: Shortness Of Breath Physician Discharge Instructions: Patient was admitted to the hospital for COPD exacerbation. She was recently in the hospital and after discharge did not fill her prescription medications. At home she did not have any inhalers rescue or long-acting. She was admitted to the hospital for hypoxic respiratory failure treated with steroids, nebulizer treatments and had improvement. She is currently 93% on room air and breathing much better. She did not criteria for home oxygen needs. During her recent hospitalization she was having uncontrolled hypertension, her medications were resumed and blood pressure is better controlled, blood pressure medications will also be sent to the pharmacy. Prescriptions sent to [facility] in [place] Please establish yourself with a local primary care doctor and follow-up in 1 to 2 weeks Please follow-up with Dr. Nazariomonmadai in 1 to 2 weeks Diet: Regular Activity: Ad he Followup: Patrick Lowery MD [ACTIVE - CAN ADMIT] - 1 Week NONE,NONE [Primary Care Provider] - 1 Week
== END 2024-01-20 09:57 | disposition home or self-care (01) | DRG 192 ==
LOC: ER 10:16 → ERHOLD 14:54 → 2ND 17:03 → OBSVTOIN 01-18 13:22
PROVIDERS: ADMIT Internal Medicine; ATTEND Internal Medicine
DX: J44.1 Chronic obstructive pulmonary disease with (acute) exacerbation (principal); E78.00 Pure hypercholesterolemia, unspecified; I10 Essential (primary) hypertension; D72.829 Elevated white blood cell count, unspecified; F17.210 Nicotine dependence, cigarettes, uncomplicated; T38.0X5A Adverse effect of glucocorticoids and synthetic analogues, initial encounter; Z71.6 Tobacco abuse counseling; Z91.040 Latex allergy status; Z90.710 Acquired absence of both cervix and uterus; Z91.148 Patient's other noncompliance with medication regimen for other reason; Z79.899 Other long term (current) drug therapy; Z85.828 Personal history of other malignant neoplasm of skin; Z11.52 Encounter for screening for COVID-19
CPT/HCPCS: 36415; 71045; 80048; 80053; 83605; 85025; 85610; 85730; 87040; 87804; 87811; 93005; 94640; 94760; 96365; 96375; 99285; G0378; J1650; J2919; J3535; J7050; J7512; J7613; J7644